=== PATIENT | male | born 1935 | race Caucasian/White ===

== ENCOUNTER 2022-04-08 14:44 | Outpatient (CLI) | payer MEDICARE, OTHER, SELFPAY ==
--- NOTE | 2022-04-08 14:48 | ECG_ITS ---
Measurements Intervals [place] Rate: 62 P: 58 [place]: 207 QRS: 45 QRSD: 95 T: 70 QT: 411 QTc: 418 Interpretive Statements SINUS RHYTHM INCOMPLETE RIGHT BUNDLE BRANCH BLOCK BASELINE ARTIFACT- V1-V4 BORDERLINE ECG NO PREVIOUS ECG AVAILABLE FOR COMPARISON Electronically Signed On 04-08-2022 15:13:39 STUDIO CAMERA OPERATOR by Myles Aguila D.O.
== END 2022-04-08 14:45 | disposition home or self-care (01) ==
PROVIDERS: Visit Provider Neurological Surgery
DX: Z01.818 Encounter for other preprocedural examination (principal); I45.10 Unspecified right bundle-branch block
CPT/HCPCS: 93005

== ENCOUNTER 2022-04-21 13:12 | Outpatient (CLI) | payer MEDICARE, OTHER, SELFPAY ==
[2022-04-21 13:57] LABS: Basophils Absolute Auto 0.1 K/mm3 (0.0-0.1); Basophils Percent Auto 0.9 % (0.2-1.2); Eosinophils Absolute Auto 0.3 K/mm3 (0-0.3); Eosinophils Percent Auto 3.6 % (0-4.4); Hematocrit 37.2 % (42.0-52.0); Hemoglobin 12.8 g/dL (14.0-18.0); Immature Granulocyte Absolute 0.03 K/mm3 (0.00-0.031); Immature Granulocyte Percent A 0.4 % (0-0.5); Lymphocytes Absolute Auto 1.66 K/mm3 (0.9-3.2); Lymphocytes Percent Auto 20.7 % (18.3-44.2); Mean Corpuscular HGB Conc 34.4 g/dl (32-36); Mean Corpuscular Hemoglobin 32.2 pg (26-34); Mean Corpuscular Volume 93.5 fl (80-100); Mean Platelet Volume 10.1 fl (7.4-10.4); Monocytes Absolute Auto 0.8 K/mm3 (0.1-0.6); Monocytes Percent Auto 9.4 % (2.6-8.5); Neutrophils Absolute Auto 5.2 K/mm3 (1.3-6.7); Platelet Count Result 259 k/mm3 (150-375); Red Blood Count 3.98 M/mm3 (4.6-6.20); Red Cell Distribution Width 12.2 % (11.5-14.5)
[2022-04-21 13:58] LABS: Appearance Urine Clear (Clear); Bilirubin Urine Negative (Negative); Blood Urine Trace-lysed (Negative); Color Urine Yellow (Yellow); Glucose Urine UA Negative (Negative); Ketones Urine Negative (Negative); Leukocyte Esterase Ur Negative LEU/UL (Negative); Nitrate Urine Negative (Negative); Protein Urine Negative (Negative); Urobilinogen Urine 0.2 mg/dL (<2.0)
[2022-04-21 14:15] LABS: Add Urine Microscopic? YES; Mucus Urine Rare /lpf
[2022-04-21 14:16] LABS: Anion Gap 8 mmol/L (8-16); Blood Urea Nitrogen 16 mg/dL (9-20); Calcium 9.4 mg/dL (8.4-10.2); Carbon Dioxide 27 mmol/L (22-30); Chloride 103 mmol/L (98-107); Estimated Glomerular Filt Rate > 60; Glucose 91 mg/dL (65-110); Sodium 138 mmol/L (137-145)
[2022-04-21 14:53] LABS: INR 1.1; Prothrombin Time 13.7 Seconds (11.1-14.7)
[2022-04-21 14:54] LABS: Partial Thromboplastin Time 29.8 SECONDS (22.3-36.8)
== END 2022-04-21 13:13 | disposition home or self-care (01) ==
LOC: ANHSURGERY 13:16
PROVIDERS: PCP Internal Medicine; Visit Provider Neurological Surgery
DX: M48.061 Spinal stenosis, lumbar region without neurogenic claudication (principal); M41.9 Scoliosis, unspecified; M47.816 Spondylosis without myelopathy or radiculopathy, lumbar region; Z01.818 Encounter for other preprocedural examination
CPT/HCPCS: 36415; 80048; 81001; 85025; 85610; 85730; 86850; 86900; 86901

== ENCOUNTER 2022-04-28 15:27 | Inpatient (IN) | payer MEDICARE, OTHER, SELFPAY ==
[2022-04-20 10:59] VITALS: BMI 24.2
--- NOTE | 2022-04-20 11:23 | PC.NURSE ---
Report to the Outpatient Waiting Room, entrance under the green pavilion located off [facility], at time __6:00AM on date __04/28/22 . Planned Procedure Time: ___7:30AM . Time changes happen often and if your time is changed the preop area will call you the afternoon before. - You and your visitor will be asked to self-screen and do not enter if you have any COVID symptoms. - Only one visitor is requested with a max of two and NO children visitors are allowed at this time. - The patient visitor may be requested to leave or wait in car when not with patient due to distancing restrictions. - A mask is optional within the hospital. Patients may have clear liquids (water, carbonated beverages, clear teas, apple juice) until 3 hours prior to surgery with a maximum of 20 ounces. - No food from midnight until time of surgery Take the following medications with a SIP of water the morning of surgery: ___NONE Medications to discontinue per physician __HOLD ASPIRIN & FISH OIL PER DR LOU (10 DAYS PER PATIENT- LAST DOSE 04/17/22). HOLD ALL VITAMINS/SUPPLEMENTS 3 DAYS PRE-OP- LAST DOSE 04/24/22. Please no make-up, nail lithuanian, hairspray, perfume, deodorant, or body powder the day of surgery. No jewelry (including any body piercings) or valuables the day of surgery, leave them at home. Please take a shower or bath the night before, or the morning of, surgery with an antibacterial soap. Wear comfortable, loose fitting clothing. Children are encouraged to wear pajamas. - Jewelry must be removed prior to entering the operating room. Rings and piercings that are not removed may be cut off. - The hospital will not accept responsibility for valuables. - Please leave all valuables, including medications, at home the day of surgery. If you are going home after surgery, a licensed miniature train driver must drive you home. - NO public transportation without another adult if you receive anesthesia. - We recommend that an adult stay with you for 24 hours following discharge. - We also recommend that you do not drive, make important decision, drink alcoholic beverages, or take any drugs that were not prescribed by your health care provider for at least 24 hours after your discharge time. Follow any additional instructions given to you from your surgeon. If you or anyone in your household have experienced Covid symptoms in the past week, please notify your surgeon or the nurse liaison at the phone number below for possible testing. Telephone instructions given to __PATIENT and asked if any additional questions and then verbalized understanding. Patient advised to call surgeon office or pre surgery nurse liaison [phone] if any additional questions. Report to the Outpatient Waiting Room, entrance under the green pavilion located off [facility], at time on date . Planned Procedure Time: . Time changes happen often and if your time is changed the preop area will call you the afternoon before. - You and your visitor will be asked to self-screen and do not enter if you have any COVID symptoms. - Only one visitor is requested with a max of two and NO children visitors are allowed at this time. - The patient visitor may be requested to leave or wait in car when not with patient due to distancing restrictions. - A mask is optional within the hospital. Patients may have clear liquids (water, carbonated beverages, clear teas, apple juice) until 3 hours prior to surgery with a maximum of 20 ounces. - No food from midnight until time of surgery - Infants may have breast milk until 4 hours before surgery, formula 6 hours prior to surgery. - Children will be allowed to drink immediately following surgery. If applicable, please bring a bottle or sippy cup to assist with drinking. Juice, water, soda, and popsicles are readily available. For infants on formula, please bring form
[2022-04-28] VITALS (18 sets, daily range): BP systolic 106–163; BP diastolic 51–83; PULSE 47–69; RESP 12–20; TEMP 36.1–36.6; O2SAT 95–100
--- NOTE | ~2022-04-28 | XR_ITS ---
XR fluoroscopy no charge 04/28/2022 12:14 Lumbar fusion/laminectomy TECHNIQUE: Fluoroscopy used during lumbar fusion/laminectomy performed by [Enmanuel Hein MD ] on 04/28/2022. 2 seconds of fluoroscopy time with 1 images captured. ] FINDINGS: Correlate with procedure note. IMPRESSION: Fluoroscopy used during lumbar fusion/laminectomy. Reviewed, dictated and finalized at location A. [employer]
[2022-04-28] MEDS: LACTATED RINGERS 1,000 ML 125 ML IV CONT (07:02)
--- NOTE | 2022-04-28 07:19 | P.PNAN_ITS ---
Anes - Initial Pre Proc Eval Procedure: Operation Date: 04/28/22 07:30 Proposed Procedures p L3-4, L4-5 Posterior Lumbar Interbody Fusion, L2-3 Right Fawad Laminectomy - Enmanuel Heni MD s L2-3 Right Lumbar Fawad Laminectomy - Enmanuel Hein MD Date/Time: 04/28/22 07:19 Surgeon: Enmanuel Hein MD Pre Op Diagnosis: lumbar stenosis, synovial cyst, disc herniation Patient Data Age: 86 Gender: M Height: 1.68 m Weight: 70.1 kg Last Vital Signs Temp 36.3 C L 04/28/22 07:05 Pulse 66 04/28/22 07:05 Resp 16 04/28/22 07:05 BP 163/83 H 04/28/22 07:05 Pulse Ox 98 04/28/22 07:05 O2 Del Method Room Air 04/28/22 07:05 Allergies Allergy/AdvReac Type Severity Reaction Status Date / Time No Known Allergies Allergy Verified 04/28/22 06:37 Home Medications Medication Instructions Recorded Confirmed Type aspirin 81 mg tablet,delayed 81 mg PO EVERY OTHER DAY 12/08/21 04/28/22 History release ibuprofen 200 mg tablet 400 mg PO Q6H PRN Pain 12/08/21 04/28/22 History omega 2-tqi-gbl-fish oil 60 mg-90 1 cap PO DAILY 12/08/21 04/28/22 History mg-500 mg capsule (Fish Oil) apcyayzoklsi-suzywphl-jneyoe tablet 1 tablet PO DAILY 04/20/22 04/28/22 History tamsulosin 0.4 mg capsule 0.4 mg PO HS 04/20/22 04/28/22 History azithromycin 500 mg tablet 250 mg PO DAILY 04/28/22 04/28/22 History Patient hx anesthesia problems: none Family hx anesthesia problems: none Results Review: All pre-operative results and documents have been reviewed as part of the pre- operative evaluation. [facility] Past Medical History Medical History DDD (degenerative disc disease) Insomnia Lumbar facet arthropathy Lumbar post-laminectomy syndrome Lumbar radiculopathy, chronic Surgical History Surgical History H/O Spinal surgery Family History Family History Other Heart disease Social History Social History Smoking status: Never smoker Alcohol intake: current Drinks per week: 1 Substance use: never Substance use type: does not use Living arrangements: with family Additional living arrangements comments: Spiritual care concerns: No Anes - Eval Final PreProcedure Day of Procedure 04/28/22 07:19 Patient weight: normal Heart: regular rate and rhythm Lungs: clear to auscultation Airway: Mallampati scale class II Neurological: alert and oriented Last oral intake: >/= 8 hours ASA classification: II Emergent: no Anesthetic plan: proceed Anesthesia type and monitoring: general ETT and standard monitoring Results Review: All pre-operative results and documents have been reviewed as part of the pre- operative evaluation. Informed Consent: The patient's anesthetic plan and its attendant risks and benefits were discussed with the patient/family/POA. Questions were solicited and answers provided to the satisfaction of the patient/family/POA.
--- NOTE | 2022-04-28 07:40 | PM.IMHP ---
H&P: HPI History of Present Illness Date/Time: 04/28/22 07:40 Chief Complaint: Back and leg pain Narrative: Jones is a 86-year-old gentleman with back and leg pain related to pathology at L3-4 L4-5 and at L2-3 who presents for fusion from L3-L5 and hemilaminectomy at L2-3. He has not changed appreciably since we last saw him. He is not having bowel or bladder difficulty. He does not have any specific muscle group weakness or dermatomal numbness. Review of Systems Review of Systems: Patient denies shortness of breath, cough, fever, chills, nausea, vomiting, weight loss, weight gain, chest pain, dysuria. He has back and leg pain and stiffness as above. His review of systems is otherwise negative on 12 systems except as noted elsewhere. [facility] Past Medical History Medical History DDD (degenerative disc disease) Insomnia Lumbar facet arthropathy Lumbar post-laminectomy syndrome Lumbar radiculopathy, chronic Surgical History Surgical History H/O Spinal surgery Family History Family History Other Heart disease Social History Social History Smoking status: Never smoker Alcohol intake: current Drinks per week: 1 Substance use: never Substance use type: does not use Living arrangements: with family Additional living arrangements comments: Spiritual care concerns: No Meds Home Medications and Allergies Home Medications Medication Instructions Recorded Confirmed Type aspirin 81 mg tablet,delayed 81 mg PO EVERY OTHER DAY 12/08/21 04/28/22 History release ibuprofen 200 mg tablet 400 mg PO Q6H PRN Pain 12/08/21 04/28/22 History omega 7-mqp-kpu-fish oil 60 mg-90 1 cap PO DAILY 12/08/21 04/28/22 History mg-500 mg capsule (Fish Oil) doiadsfvyxol-ppdrvrtk-apoahr tablet 1 tablet PO DAILY 04/20/22 04/28/22 History tamsulosin 0.4 mg capsule 0.4 mg PO HS 04/20/22 04/28/22 History azithromycin 500 mg tablet 250 mg PO DAILY 04/28/22 04/28/22 History Allergies Allergy/AdvReac Type Severity Reaction Status Date / Time No Known Allergies Allergy Verified 04/28/22 06:37 Vital Signs Vital Signs - 24 hr 04/28/22 07:05 Temperature 97.3 F L Pulse Rate 66 Respiratory Rate 16 Blood Pressure 163/83 H Pulse Oximetry 98 Oxygen Delivery Room Air Exam Narrative: Strength is normal the bilateral lower extremities to direct confrontation. Sensation is intact to light touch throughout the lower extremities. Respirations are unlabored Regular rate Assessment and Plan Assessment and plan (1) Foraminal stenosis of lumbar region: Code(s): M48.061 - Spinal stenosis, lumbar region without neurogenic claudication Status: Acute (2) Scoliosis of lumbar spine: Code(s): M41.9 - Scoliosis, unspecified Status: Acute (3) Stenosis of lateral recess of lumbar spine: Code(s): M48.061 - Spinal stenosis, lumbar region without neurogenic claudication Status: Acute (4) Lumbar spondylosis: Code(s): M47.816 - Spondylosis without myelopathy or radiculopathy, lumbar region Status: Acute Plan Jones is an 86-year-old gentleman with back and leg pain related to the above pathology presents for decompression fusion L3 and hemilaminectomy at L2-3. I described to him again that operation, its risks, potential benefits, the operative and postoperative course in detail and answered all his questions personally. He indicates understanding and elects to proceed with that operation.
--- NOTE | 2022-04-28 07:42 | WPDHPUPDATE1 ---
History and Physical Update Update Date/Time: 04/28/22 07:42 History and Physical has been reviewed, including an updated exam of the patient. There are NO changes in the patient's condition. Risks, benefits, and alternatives have been discussed and questions answered. Patient agrees to proceed with procedure.
[2022-04-28] MEDS: ceFAZolin 2 GM/D5W 50 ML 2 GM/50 ML BAG IVPB (07:46)
[2022-04-28] MEDS: LIDO 1%/EPINEPHRINE/PF 1:200,000 30 ML VIAL 10 ML XX (08:40)
[2022-04-28] MEDS: ceFAZolin SODIUM 1 GM VIAL IV PUSH (11:46)
--- NOTE | 2022-04-28 12:01 | SUR.OPER ---
550mL of clear yellow urine drained from bravo
[2022-04-28] MEDS: LACTATED RINGERS 1,000 ML 30 ML IV CONT ×2 (12:17)
[2022-04-28] MEDS: fentaNYL CITRATE INJ (*CRX) 100 MCG/2 ML VIAL 25 MCG IV PUSH ×8 (12:34→13:15)
[2022-04-28] MEDS: HYDROmorphone HCL INJ (*CRX) 1 MG/ML SYR 0.5 MG IV PUSH ×3 (13:52→14:55)
--- NOTE | 2022-04-28 14:05 | SUR.PHASEI ---
1400 - Dr. Hein at bedside assessing pt
--- NOTE | 2022-04-28 14:17 | SUR.PHASEI ---
1417 - pt meets anesthesia criteria. no beds available at this time. pt to preop for extended recovery
--- NOTE | 2022-04-28 16:12 | ADMGEN ---
This patient, Jones Del Castillo, was admitted to Medical Room 251-. Patient/family oriented to hospital policies and general routines including ID bracelet, bed and alarms, visiting hours, pain management, procedures, bathroom and other care routines, personal items, smoking policy, room service/diet, and visiting hours. Information on how to activate the Rapid Response Team has been discussed. Patient/Family are encouraged to report perceived risks to care and to ask questions if they do not understand what they are told or what they should do.
[2022-04-28] MEDS: AZITHROMYCIN 250 MG TABLET PO (16:43)
[2022-04-28] MEDS: KCL 20 MEQ/D5/0.45% SOD CHL 1,000 ML 100 ML IV CONT (17:26)
[2022-04-28] MEDS: DOCUSATE SODIUM 100 MG CAPSULE PO (21:10)
[2022-04-28] MEDS: TAMSULOSIN HCL 0.4 MG CAPSULE PO (21:10)
[2022-04-28] MEDS: HYDROcodone/acetaminophen (*CRX) 10-325 MG TABLET 1 TAB PO (21:13)
[2022-04-29] VITALS (8 sets, daily range): BP systolic 88–141; BP diastolic 49–69; PULSE 58–77; RESP 16–18; TEMP 36.1–36.8; O2SAT 95–99
[2022-04-29] MEDS: HYDROcodone/acetaminophen (*CRX) 10-325 MG TABLET 1 TAB PO (03:00)
[2022-04-29] MEDS: AZITHROMYCIN 250 MG TABLET PO (08:19)
[2022-04-29] MEDS: OMEGA 3 POLYUNSAT FATTY ACIDS 1 GM CAP PO (08:19)
[2022-04-29] MEDS: OPTI-GEN TAB 1 TABLET PO (08:19)
[2022-04-29] MEDS: DOCUSATE SODIUM 100 MG CAPSULE PO ×2 (08:19→21:08)
[2022-04-29] MEDS: KCL 20 MEQ/D5/0.45% SOD CHL 1,000 ML 30 ML IV CONT (08:20)
[2022-04-29] MEDS: HYDROcodone/acetaminophen (*CRX) 5-325 MG TABLET 1 TAB PO ×2 (08:28→23:37)
--- NOTE | 2022-04-29 12:01 | WPDANESPN ---
Anes - Prog Note Post-Op Date/Time: 04/29/22 12:01 Cardiovascular status: normal Respiratory status: normal Airway patency: baseline Mental status: baseline Post-Op hydration status: normal Vital Signs: Last Vital Signs Temp 36.5 C 04/29/22 09:35 Pulse 67 04/29/22 09:35 Resp 16 04/29/22 09:35 BP 100/52 L 04/29/22 09:35 Pulse Ox 98 04/29/22 09:35 O2 Del Method Room Air 04/29/22 09:55 O2 Flow Rate 2 04/28/22 15:06 Pain Score (VAS): 310 I/O: Intake & Output 04/28/22 04/29/22 04/29/22 23:59 07:59 15:59 Intake Total 946 532 6082 Output Total 140 1700 Balance 30 -750 1000 Post-procedural complaints: none Patient Feedback: Patient satisfied with anesthetic care.
--- NOTE | 2022-04-29 13:55 | WPDNEUROPN ---
Progress Note: A&P Assessment and Plan (1) Foraminal stenosis of lumbar region: Code(s): M48.061 - Spinal stenosis, lumbar region without neurogenic claudication Status: Acute Plan Patient doing well and pain is controlled. He reported that his was diagnosed with COVID today. Case discussed with Dr Hein. Time Spent With Patient Time with patient: less than 15 minutes Subjective Date/time seen: 04/29/22 13:55 Interval history: 86 year old male who is s/p Hemilaminectomy L2-3 with posterior fusion L3-5, post op day 1. Preoperative pain controlled, however remains with incisional pain-controlled with oral medications. Ambulated in the hallway, bravo catheter removed today and Hemovac drain remains in place. No complaints of leg symptoms. Exam Narrative: AO x 3 Speech clear fluent and appropriate Lumbar dressing is clean ddry and intact. Strength is equal to the bilateral lower extremities to direct confrontation, 5/5. Sensation is intact to light touch throughout the lower extremities. Objective Data Vital Signs Vital Signs: Vital Signs - 24 hr 04/28/22 14:00 04/28/22 14:14 04/28/22 14:30 Temperature 36.1 C L Pulse Rate 58 L 58 L 62 Respiratory Rate 13 20 16 Blood Pressure 139/62 128/72 154/59 H Pulse Oximetry 100 100 97 Oxygen Delivery Nasal Cannula Nasal Cannula Nasal Cannula Oxygen Flow Rate 2 2 2 04/28/22 15:06 04/28/22 16:00 04/28/22 16:15 Temperature 36.5 C 36.5 C Pulse Rate 69 69 68 Respiratory Rate 16 16 16 Blood Pressure 148/62 H 145/57 H 130/58 L Pulse Oximetry 98 97 95 Oxygen Delivery Nasal Cannula Oxygen Flow Rate 2 04/28/22 16:40 04/28/22 17:45 04/28/22 19:49 Temperature 36.4 C 36.4 C 36.6 C Pulse Rate 60 65 67 Respiratory Rate 16 16 17 Blood Pressure 134/51 L 130/55 L 126/57 L Pulse Oximetry 95 97 98 Oxygen Delivery Oxygen Flow Rate 04/28/22 22:27 04/29/22 02:27 04/29/22 04:53 Temperature 36.6 C 36.3 C L 36.7 C Pulse Rate 59 L 58 L 60 Respiratory Rate 18 17 17 Blood Pressure 106/57 L 104/49 L 102/53 L Pulse Oximetry 95 95 96 Oxygen Delivery Oxygen Flow Rate 04/29/22 08:27 04/29/22 09:35 04/29/22 09:55 Temperature 36.5 C Pulse Rate 67 Respiratory Rate 16 Blood Pressure 116/54 L 100/52 L Pulse Oximetry 98 Oxygen Delivery Room Air Oxygen Flow Rate 04/29/22 08:15 04/29/22 09:30 Temperature Pulse Rate Respiratory Rate Blood Pressure 88/54 L Pulse Oximetry Oxygen Delivery Room Air Oxygen Flow Rate Intake/Output Intake/Output: Intake & Output 04/26/22 04/27/22 04/28/22 04/29/22 23:59 23:59 23:59 23:59 Intake Total 470 2190 Output Total 540 1800 Balance -70 390 Meds/Results Medications: Active Medications Generic Name Dose Route Start Last Admin Trade Name Freq PRN Reason Stop Dose Admin Hydrocodone Bitart/Acetaminophen 1 tab 04/28/22 14:18 04/29/22 03:00 Hydrocodone/Acetaminophen (*Crx) 10-325 Mg Tablet PO 1 tab Q4H PRN Administration Moderate Pain (4-6) Hydrocodone Bitart/Acetaminophen 1 tab 04/28/22 15:27 04/29/22 08:28 Hydrocodone/Acetaminophen (*Crx) 5-325 Mg Tablet PO 1 tab Q4H PRN Administration Mild Pain (1-3) Al Hydrox/Mg Hydrox/Simethicone 20 ml 04/28/22 15:27 Mag Hydrox/Al Hydrox/Simeth 30 Ml Udc PO Q4H PRN Indigestion/Heartburn Azithromycin 250 mg 04/28/22 15:35 04/29/22 08:19 Azithromycin 250 Mg Tablet PO 250 mg DAILY SANGITA Administration Bisacodyl 10 mg 04/28/22 15:27 Bisacodyl 10 Mg Suppository RECTAL DAILY PRN Constipation Cyclobenzaprine HCl 10 mg 04/28/22 15:27 Cyclobenzaprine Hcl 10 Mg Tablet PO TID PRN Muscle Spasms Docusate Sodium 100 mg 04/28/22 21:00 04/29/22 08:19 Docusate Sodium 100 Mg Capsule PO 100 mg Q12HR SANGITA Administration Fish Oil 1 gm 04/29/22 09:00 04/29/22 08:19 Union 3 Polyunsat Fatty Acids 1 Gm Cap PO 05/29/22 08:59
[2022-04-29] MEDS: TAMSULOSIN HCL 0.4 MG CAPSULE PO (21:08)
[2022-04-30 03:35] VITALS: BP 131/61; PULSE 97; RESP 18; TEMP 36.2; O2SAT 95
[2022-04-30 07:11] VITALS: BP 119/55; PULSE 90; RESP 18; TEMP 36.2; O2SAT 96
[2022-04-30] MEDS: HYDROcodone/acetaminophen (*CRX) 10-325 MG TABLET 1 TAB PO ×4 (08:02→23:16)
[2022-04-30] MEDS: OMEGA 3 POLYUNSAT FATTY ACIDS 1 GM CAP PO (08:03)
[2022-04-30] MEDS: OPTI-GEN TAB 1 TABLET PO (08:03)
[2022-04-30] MEDS: DOCUSATE SODIUM 100 MG CAPSULE PO ×2 (08:04→20:15)
[2022-04-30] MEDS: AZITHROMYCIN 250 MG TABLET PO (08:04)
[2022-04-30 13:15] VITALS: BP 117/58; PULSE 87; RESP 18; TEMP 36.7; O2SAT 97
[2022-04-30 16:51] VITALS: BP 124/58; PULSE 83; RESP 18; TEMP 36.7; O2SAT 97
[2022-04-30 20:00] VITALS: PULSE 83; RESP 18; O2SAT 97
[2022-04-30] MEDS: TAMSULOSIN HCL 0.4 MG CAPSULE PO (20:15)
[2022-04-30 21:34] VITALS: BP 118/62; PULSE 77; RESP 20; TEMP 36.2; O2SAT 99
[2022-04-30] MEDS: KCL 20 MEQ/D5/0.45% SOD CHL 1,000 ML 30 ML IV CONT (23:16)
[2022-05-01 02:00] VITALS: BP 112/60; PULSE 83; RESP 18; TEMP 36.1; O2SAT 96
[2022-05-01] MEDS: HYDROcodone/acetaminophen (*CRX) 10-325 MG TABLET 1 TAB PO ×3 (04:16→16:17)
[2022-05-01 06:00] VITALS: BP 116/61; PULSE 84; RESP 18; TEMP 36.1; O2SAT 96
[2022-05-01] MEDS: DOCUSATE SODIUM 100 MG CAPSULE PO (08:15)
[2022-05-01] MEDS: AZITHROMYCIN 250 MG TABLET PO (08:15)
[2022-05-01] MEDS: OMEGA 3 POLYUNSAT FATTY ACIDS 1 GM CAP PO (08:15)
[2022-05-01] MEDS: OPTI-GEN TAB 1 TABLET PO (08:15)
[2022-05-01 10:00] VITALS: BP 133/60; PULSE 88; RESP 18; TEMP 37.1; O2SAT 98
[2022-05-01 14:39] VITALS: BP 118/58; PULSE 86; RESP 18; TEMP 36.4; O2SAT 97
--- NOTE | 2022-05-19 13:54 | W.PM.PROC2 ---
Procedure Note - Detailed Date of Procedure 05/19/22 Pre-op Diagnosis lumbar stenosis, synovial cyst, disc herniation Post-op Diagnosis Same Procedure Performed L3-4 and L4-5 laminectomy and bilateral facetectomy, L3-4 and L4-5 complete diskectomy and interbody arthrodesis utilizing Orthofix titanium interbody devices and local autograft bone, L3-5 pedicle screw instrumentation with Orthofix pedicle screws, right L2-3 hemilaminectomy. Surgeon Enmanuel Hein MD Anesthesia General Indications Jones is an 86-year-old gentleman with back and leg pain related to spondylosis, stenosis and foraminal stenosis at L3-5 and lateral recess stenosis at L2-3 presents for decompression and fusion at L3-5 and a hemilaminectomy on the right at L2-3. There is also a synovial cyst present. Description of Procedure The patient was brought to the operative room in the supine position, was sedated, intubated and placed under general anesthesia in routine fashion. He was then turned into the prone position on an open [place] table. He of operations fact examined, marked our incision, prepped and draped in routine sterile fashion. Incision was marked over the L2 through 0 5 spinous processes in the midline. This area was injected with 0.5% lidocaine with 1-200 epinephrine. Intravenous antibiotics prior to incision. Incision was made with a 10 blade scalpel down to the lumbodorsal fascia. A subperiosteal dissection of the muscle and soft tissue away from the spinous process and lamina at L2 through 5 was performed with a subperiosteal elevator and Bovie cautery. A verifying x-rays obtained to verify level of operation. The L3 and L4 spinous processes were removed with a Thad rongeur. Kerrison punches, curettes curettes and a Leksell rongeur used to remove lamina in the midline and to the soft contents of the canal were encountered. a Midas Mk drill was used to resect the pars bilaterally at L3-L4. The inferior articular process and facet of L3 and L4 could then be removed bilaterally. These, plus the spinous processes were stripped free of soft tissue and morselized for later use as interbody autograft. Curved curettes and Kerrison punches were used to define a plane with the dura and removed bone and ligament flushed with the pedicle and through the foramina widely decompressing the exiting nerve roots. At L2-3 on the right the Midas-Mk drill was used to perform a hemilaminectomy and medial facetectomy. The yellow ligament was lifted and removed piecemeal using Kerrison punches in the lateral recess. This was done until a dental instrument could be placed in the lateral recess to confirm lack of compression. Pedicle was felt and the L2 and L3 nerve roots identified and followed towards the respective foramina. With the thecal sac retracted and protected the disc space was entered bilaterally using an 11 blade scalpel. Scrapers of various sizes, curettes of various configurations, a pituitary rongeur and a rasp were used to remove as much cartilaginous endplate and disc material as possible down to bleeding cortical flat surfaces on the opposing bones. The disc spaces were then sized an appropriately sized interbody devices were chosen and filled with local autograft bone. The disc spaces were likewise filled with local autograft bone medially and anteriorly using the tamp and fundal for that purpose. The interbody devices were then placed to a 2-3 mm countersink within the disc space bilaterally. The transverse processes at L3-5 or uncovered using Bovie cautery and decorticate it using a Midas Mk drill. Additional local autograft bone was packed continuously from L3-5 over the decorticated transverse processes and lateral masses for a posterolateral fusion. Pedicle screw instrumentation was performed at L3-L4 L5 bilaterally by observing and palpating the pedicle while a hole was made in the superior to the process above the pedicle using a Midas
--- NOTE | 2022-05-19 14:42 | PM.DS ---
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 DS: Summary Hospital Course Hospital Course: Jones was taken to the operating room on 04/28/2022 with the aforementioned operation was performed without complication. Patient went to the floor postoperatively. Physical and occupational therapy were involved in his care. By postoperative day 2 his Chahal catheter and drain were removed. By postoperative day 3 he was eating, ambulating, emptying his bladder, and his pain was under control with by mouth pain medicine. His wounds remain clean, dry and intact. He was afebrile with stable vital signs. He was therefore allowed to be discharged to home. Time Spent with Patient Time attestation: Total time spent providing and/or coordinating discharge services: Discharge Plan Discharge Attending physician on discharge: Enmanuel Hein Consulting providers: Melchor Mcneill ; Walker Darling Discharging Clinician: Enmanuel Hein Anticipated Discharge Date/Time: 05/01/22 18:20 Patient Disposition: Home, Self-Care Activity: may shower Diet: as tolerated Wound Care Instructions: other - see discharge instructions Discharge Instructions: INSTRUCTIONS AFTER YOUR LUMBAR LAMINECTOMY/DECOMPRESSION/FORAMINOTOMY/DISCECTOMY Incisions may be closed with either: Steri-strips (let them wear off on their own). Surgical glue (let it peel off on its own). Sutures or garett (call the office for an appointment to have these removed). Keep the incision dry for the first three days after surgery. Never apply ointments or lotions to the incision. The incision should be checked daily. Notify the office if there is drainage, redness, or if you have fever with a temperature of over 100 degrees. After the third postop day, it is okay to shower. Let soap and water run over your incision. No soaking in a tub, hot tub, or pool for at least one month. You are encouraged to walk as much as comfortable, with assistance as needed. For example, it may be beneficial to walk short distances hourly during the waking hours and gradually increase walking during your recovery period. Fatigue can be common. Avoid any bending, heavy lifting, twisting movements. You have an haxhr-dj-mbk-pound lift restriction until further advised by your physician (A gallon of milk weighs eight pounds). Make frequent position changes, avoiding long periods of sitting. Try not to sit more than 30 minutes at a time. You may engage in sexual activity in two weeks as tolerated. No housework, especially vacuuming, making beds, or doing laundry until seen in the office. You may walk stairs carefully. Minimize car rides for two weeks. Driving can usually be resumed within two weeks; however, you may not drive at that time if still taking pain medications. Once you are discharged from the hospital, please call the office to set up your postop appointment. The physician may order pain medication and/or muscle relaxers. As time goes by, you should require less of these. Always take your medication as ordered, and only if needed. If you take more than prescribed, it will not be refilled early. If you feel you require narcotic medication refill, kindly give the office a 72-hour notice. No refills are given over the weekend. Anti-inflammatory meds (like Ibuprofen, Aleve, Advil, Motrin) may be used if approved by your surgeon. Over the counter Tylenol products may be used but use caution mixing Tylenol with your pain medication. The common pain pills include Acetaminophen as an ingredient, you could cause liver damage if taking too much. Tylenol and Acetaminophen are
== END 2022-05-01 18:51 | disposition home or self-care (01) | DRG 460 ==
LOC: ANH2MED 15:30
PROVIDERS: Admitting Provider Neurological Surgery; PCP Internal Medicine; Visit Provider Neurological Surgery
PROC: (CPT 22612; principal; 2022-04-28 07:30)
DX: M48.061 Spinal stenosis, lumbar region without neurogenic claudication (principal); M41.9 Scoliosis, unspecified; M47.26 Other spondylosis with radiculopathy, lumbar region; Z79.82 Long term (current) use of aspirin
CPT/HCPCS: 97116; 97161; 97165; 97530; 97535; 99199; A9270; C1713; J0690; J1100; J1170; J2370; J2405; J2704; J2710; J3010; J3480; J7120

== ENCOUNTER 2022-06-15 08:02 | Outpatient (CLI) | payer MEDICARE, OTHER, SELFPAY ==
--- NOTE | ~2022-06-15 | XR_ITS ---
Lumbosacral Spine: AP and lateral views Clinical History: Postoperative COMPARISON: 03/11/2011 Findings: There is posterior fusion hardware extending from L3 through L5, bilateral rods and transpe dicular screws present. Interbody disc fusion devices are present at the L3-L4, L4-L5, and L5-S1 disc spaces. There is severe degenerative disc narrowing at L2-L3, with mild degenerative disc narrowing at L1-L2. Probable laminectomy defects present at L4 and L5. Bilateral hip arthroplasties are incidentally noted minimal degenerative change of the SI joints note d. Impression: Postoperative change related to posterior fusion from L3 through L5, as detailed above. Severe degenerative disc narrowing at L2-L3. Reviewed, dictated and finalized at location M. [facility] Impression: Postoperative change related to posterior fusion from L3 through L5, as detaile d above. Severe degenerative disc narrowing at L2-L3.
== END 2022-06-15 08:03 | disposition home or self-care (01) ==
PROVIDERS: PCP Internal Medicine; Visit Provider Neurological Surgery
DX: Z98.890 Other specified postprocedural states (principal)
CPT/HCPCS: 72100

== ENCOUNTER 2022-07-10 09:19 | Outpatient (CLI) | payer MEDICARE, SELFPAY ==
[2022-07-10 09:39] LABS: Add Urine Microscopic? YES; Bilirubin Urine Negative (Negative); Blood Urine Trace-Intact (Negative); Color Urine Light Yellow (Yellow); Glucose Urine UA Negative (Negative); Ketones Urine Negative (Negative); Leukocyte Esterase Ur 3+ (Negative); Nitrate Urine Positive (Negative); Protein Urine 2+ (Negative); Specific Grav Ur <= 1.005 (1.010-1.020); Urobilinogen Urine 0.2 mg/dL (0.2-1.0); pH Urine >=9.0 (5.0-8.0)
[2022-07-10 09:44] LABS: Appearance Urine Cloudy (Clear)
[2022-07-10 09:45] LABS: Bacteria Urine 4+ /hpf; Squamous Epithelial Cell Urine Rare /hpf (Few)
== END 2022-07-10 09:20 | disposition home or self-care (01) ==
LOC: CHSLAB 09:22
PROVIDERS: PCP Internal Medicine; Visit Provider Internal Medicine
DX: N39.0 Urinary tract infection, site not specified (principal)
CPT/HCPCS: 81001; 87077; 87086; 87088; 87186

== ENCOUNTER 2022-08-25 11:32 | Emergency (ER) | payer MEDICARE, OTHER, SELFPAY ==
[2022-08-25] VITALS (27 sets, daily range): BP systolic 143–177; BP diastolic 72–99; PULSE 62–103; RESP 12–24; TEMP 36.4–36.8; O2SAT 95–99
--- NOTE | ~2022-08-25 | CT_ITS ---
EXAMINATION: CTA chest PE protocol DATE: 08/25/2022 12:40 INDICATION: Shortness of breath. Midsternal chest pain. TECHNIQUE: Computed tomography angiography (CTA) of the chest was performed with 100 mL Omnipaque-350 intravenous contrast timed to evaluate the pulmonary arteries. Coronal maximum intensity projection 3D-reconstructions were created by the technologist. Automated exposure control and iterative reconst ruction technique were employed. The dose-length product was 345.83 mGy-cm. COMPARISON: Chest CT 06/05/2015 FINDINGS: There is mild scarring at the lung apices. There is smooth septal thickening in the lungs w ith an inferior predominance, consistent mild pulmonary edema. Calcified left lung nodules and a calc ified mediastinal lymph node are consistent with old granulomatous disease. No pleural effusion. The heart size is normal. There are coronary artery calcifications. No pericardial effusion. There is no pulmonary embolus. There is severe cervical and upper thoracic spondylosis. IMPRESSION: 1. No pulmonary embolus. 2. Mild pulmonary edema. Reviewed, dictated and finalized at location A.
--- NOTE | ~2022-08-25 | XR_ITS ---
EXAMINATION: XR chest 2V DATE: 08/25/2022 11:56 INDICATION: Midsternal chest pain TECHNIQUE: PA and lateral views of the chest are obtained. COMPARISON: 11/10/2018 FINDINGS: The lungs are free of acute opacities. No pleural effusion or pneumothorax. The cardiomedia stinal silhouette is normal. There is moderate thoracic spondylosis. IMPRESSION: 1. No acute cardiopulmonary abnormality. Reviewed, dictated and finalized at location L.
--- NOTE | 2022-08-25 11:34 | ECG_ITS ---
Measurements Intervals [place] Rate: 74 P: IA: 0 QRS: 31 QRSD: 92 T: -17 QT: 373 QTc: 416 Interpretive Statements SINUS RHYTHM WITH ABERRANT CONDUCTION OR VENTRICULAR PREMATURE COMPLEXES AND PREMATURE ATRIAL CONTRACTION NONSPECIFIC ST AND T-WAVE ABNORMALITY ABNORMAL ECG Electronically Signed On 08-26-2022 13:57:40 CDT by Jack Becerra M.D.
--- NOTE | 2022-08-25 11:35 | ED.CHESTPAIN ---
HPI - Chest Pain General Chief Complaint: Chest Pain Stated Complaint: chest pain Time Seen by Provider: 08/25/22 11:33 Source: patient and RN notes reviewed Mode of arrival: wheelchair Limitations: no limitations History of Present Illness HPI narrative: patient states that for the last 2 days when he was using a pitchfork to throw hay up over wall for his horses he began having chest pain. Said it was dull achy substernal with some associated shortness of breath. He denied any nausea vomiting denied any diaphoresis. He said it went away after he rested. He has never had any cardiac history. He has no associated risk factors. Never been a smoker. He went to see his primary care physician in follow-up this morning. An EKG at his office showed some ST elevations in 2 3 and AVF. Repeat EKG within 30 minutes of the last 1 here our facility does not show that ST-elevation MD complaint: chest pain Onset (ago): day(s) (3) Timing of current episode: episodic and now resolved Onset: during exertion Pain location: substernal Pain radiation: none Severity: moderate Quality: aching and dull Relieving factors: rest Exacerbating factors: exertion Associated symptoms: dyspnea (mild) Treatment prior to arrival: none Risk Factors Coronary artery disease risk factors: none Thoracic aortic dissection risk factors: none Related Data Home Medications Medication Instructions Recorded Confirmed aspirin 81 mg tablet,delayed 81 mg PO EVERY OTHER DAY 12/08/21 08/25/22 release omega 6-bno-wrn-fish oil 60 mg-90 1 cap PO DAILY 12/08/21 08/25/22 mg-500 mg capsule (Fish Oil) tamsulosin 0.4 mg capsule 0.4 mg PO HS 04/20/22 08/25/22 krill oil 500 mg capsule 500 mg PO HS 08/25/22 08/25/22 vvgwdepylogc-qlkmhdxi-fssnut tablet 1 tablet PO DAILY 08/25/22 08/25/22 Allergies Allergy/AdvReac Type Severity Reaction Status Date / Time No Known Allergies Allergy Verified 08/25/22 11:43 Review of Systems Review of Systems: All systems reviewed & are unremarkable except as noted in HPI and below Gastrointestinal: Gastrointestinal: Denies diarrhea and Denies nausea PMFSH Past Medical History Medical History (Updated 08/25/22 @ 12:23 by Tyler Alvarez MD) BPH (benign prostatic hyperplasia) DDD (degenerative disc disease) Insomnia Lumbar facet arthropathy Lumbar post-laminectomy syndrome Lumbar radiculopathy, chronic Surgical History Surgical History H/O Spinal surgery Family History Family History (Updated 08/25/22 @ 16:14 by Sania Alexis RN) Father Pneumonia Mother Heart disease Social History Social History Smoking status: Never smoker Alcohol intake: never Drinks per week: 1 Substance use: never Substance use type: does not use Lack of Transportation: No Lack of Food: Never True Current Housing: I Have Housing Concerned About Future Housing: No Difficulty Paying Gas/Electric Bills: No Difficulty Paying for Meds: No Currently Unemployed: No Education: High School Diploma/GED Difficulty w/ Childcare or Family Care: No Living arrangements: with family Additional living arrangements comments: Spiritual care concerns: No Exam Const: General: healthy appearing, no acute distress and alert Nutritional Appearance: well nourished and thin Orientation/consciousness: patient oriented x3 Limitations: no limitations HENMT: Head: normal to inspection Ears: external ears normal Face/Nose/Sinus: Normal external nose present Face and sinus: normal facial exam Mouth: Yes Normal oral and palatal mucosa present Eyes: Conjunctivae: conjunctivae normal Pupils: Equal, round and reactive pupils present EOM: EOMs intact bilaterally Neck: Neck: normal visual inspection Resp: Effort & Inspection: normal respiratory effort Auscultation: clear to auscultation bilaterally Cardio: R
[2022-08-25 11:49] LABS: Basophils Absolute Auto 0.06 K/mm3 (0.00-0.10); Basophils Percent Auto 0.9 % (0.0-1.0); Eosinophils Absolute Auto 0.11 K/mm3 (0.02-0.50); Eosinophils Percent Auto 1.6 % (1.0-6.0); Hematocrit 37.7 % (37.0-46.0); Immature Granulocyte Absolute 0.02 K/mm3 (0.00-0.00); Immature Granulocyte Percent A 0.3 % (0.0-0.0); Lymphocytes Absolute Auto 1.45 K/mm3 (1.10-4.50); Lymphocytes Percent Auto 21.1 % (18.0-42.0); Mean Corpuscular HGB Conc 34.5 g/dL (32.0-36.0); Mean Corpuscular Hemoglobin 32.4 pg (27.0-31.0); Mean Platelet Volume 10.1 fl (8.7-11.0); Monocytes Percent Auto 10.2 % (2.0-11.0); Neutrophils Absolute Auto 4.5 K/mm3 (1.7-7.2); Neutrophils Percent Auto 65.9 % (50.0-70.0); Platelet Count Result 229 K/mm3 (150-420); Red Blood Count 4.01 M/mm3 (4.70-6.10); Red Cell Distribution Width 11.9 % (11.6-14.4); White Blood Count 6.9 K/mm3 (4.8-10.8)
[2022-08-25 12:03] LABS: Partial Thromboplastin Time 26.5 SEC (23.90-30.70); Prothrombin Time 10.6 Seconds (9.50-12.10)
[2022-08-25 12:06] LABS: Alanine Aminotransferase 25 U/L (16-63); Albumin Level 3.6 g/dL (3.4-5.0); Alkaline Phosphatase 64 U/L (46-116); Anion Gap 9 mmol/L (8-16); Aspartate Amino Transferase 45 U/L (15-37); Bilirubin,Total 0.5 mg/dL (0.00-1.00); Blood Urea Nitrogen 17 mg/dL (7-18); Calcium 8.9 mg/dL (8.5-10.1); Carbon Dioxide 28 mmol/L (21-32); Chloride 107 mmol/L (98-108); D Dimer 1.01 mg/L (0.19-0.50); Estimated CRCL calculation 41 ml/min; Estimated Glomerular Filt Rate > 60; Glucose 108 mg/dL (70-99); Osmolality Calculated 300 mOsm/kg (285-295); Potassium 3.8 mmol/L (3.5-5.1); Sodium 144 mmol/L (136-145)
[2022-08-25] MEDS: ASPIRIN 81 MG CHEWABLE TABLET 324 MG PO (12:09)
[2022-08-25] MEDS: HEPARIN SODIUM 5,000 UNITS/ML VIAL 4500 UNITS IV PUSH (12:34)
[2022-08-25] MEDS: HEPARIN SOD/D5W 100 UNITS/ML 25,000 UNITS/250 ML BAG 9 UNITS IV CONT (13:40)
== END 2022-08-25 15:14 | disposition short-term general hospital (02) ==
PROVIDERS: Emergency Provider Emergency Medicine; PCP Internal Medicine
DX: I21.4 Non-ST elevation (NSTEMI) myocardial infarction (principal); Z79.82 Long term (current) use of aspirin
CPT/HCPCS: 36415; 71046; 71275; 80053; 84484; 85025; 85380; 85610; 85730; 93005; 96365; 96366; 99285; A9270; J1644; Q9967

== ENCOUNTER 2022-08-25 15:49 | Inpatient (IN) | payer MEDICARE, OTHER, SELFPAY ==
[2022-08-25 15:50] VITALS: BP 154/85; PULSE 65; RESP 15; TEMP 36.1; O2SAT 98
--- NOTE | 2022-08-25 16:38 | PM.IMHP ---
H&P: HPI History of Present Illness Date/Time: 08/25/22 16:38 Chief Complaint: Chest pain Narrative: This is a 86-year-old male patient who has had no prior history of any coronary artery disease. The patient stated on Wednesday he was pitching hay for his horses any began to have chest pain. He said it was a dull ache and it lasted for several hours. It did not radiate down his arm rope neck. He had no nausea or vomiting with it but did have some associated shortness of breath. The patient stated that he took 2 aspirin that night and went to sleep. His pain came back after he pH take a again on Wednesday and had the discomfort again today. The patient is a lifelong nonsmoker. The patient was seen by his primary care doctor and had an EKG in his office. Is reported that the patient had some ST elevations in lead 2 3 and AVF. The patient was sent to [facility] and no ST elevation was seen. EKG at [facility] was read as atrial fibrillation but the patient has P-waves it did not appear to be AFib per my read. EKG was read as sinus rhythm incomplete right bundle-branch block. Borderline EKG. Here at [facility] the patient is having PE PVCs. Here his H&H is 13.2 and 38.9. His D-dimer was elevated to 1.01 at [facility]. His troponin at [facility] was 2253 per their standards of 0-60. Repeat troponin here is 2.820 and 2.820. The patient has been on a heparin drip. Chest CTA was read as no pulmonary embolus. Mild pulmonary edema. Chest x-ray was read as no acute cardiopulmonary abnormality. Cardiology has been consulted after he was transferred to [facility] from hospital. The patient was a direct admit from [facility]. The patient is being admitted to observation status on the date of service of 08/25/2022. Review of Systems Review of Systems: All systems reviewed & are unremarkable except as noted in HPI and below Constitutional: Constitutional: Reports as per HPI and Reports no additional constitutional complaints Eyes: Eyes: Reports as per HPI and Reports no additional eye complaints ENT: Reports system reviewed and no additional complaints, except as documented and Reports Normal hearing present Cardiovascular: Cardiovascular: Reports no additional cardiovascular complaints Respiratory: Respiratory: Reports no additional respiratory complaints and Reports no additional respiratory complaints Gastrointestinal: Gastrointestinal: Reports as per HPI and Reports no additional gastrointestinal complaints Musculoskeletal: Musculoskeletal: Reports no additional musculoskeletal complaints Integumentary/Breasts: Skin/Breast: Reports system reviewed and no additional complaints, except as docu and Reports as per HPI Neurologic: Reports system reviewed and no additional complaints, except as documented, Reports as per HPI and Reports Normal hearing present Psychiatric: Psychiatric: Reports no additional psychiatric complaints and Reports as per HPI Endocrine: Endocrine: Reports no additional endocrine complaints Hematologic/Lymphatic: Hematologic/Lymphatic: Reports no additional hematologic/lymphatic complaints Allergic/Immunologic: Allergic/Immunologic: Reports no additional allergic/immunologic complaints PMFSH Past Medical History Medical History (Updated 08/25/22 @ 21:28 by Jennifer Jalloh NP) BPH (benign prostatic hyperplasia) DDD (degenerative disc disease) FH: bilateral hip replacements Insomnia Lumbar facet arthropathy Lumbar post-laminectomy syndrome Lumbar radiculopathy, chronic Surgical History Surgical History (Updated 08/25/22 @ 21:23 by Jennifer Jalloh NP) H/O Spinal surgery X2 History of total hip replacement Bilateral Family History Family History (Updated 08/25/22 @ 21:24 by Jennifer Jalloh NP) Father Pneumonia Glaucoma Mother Heart disease Macular degeneration Social History Social History (Updated 08/25/22 @ 21:24 by Rupal
[2022-08-25] MEDS: HEPARIN SOD/D5W 100 UNITS/ML 25,000 UNITS/250 ML BAG 8 UNITS IV CONT (17:13)
[2022-08-25 17:34] VITALS: BMI 24.5
[2022-08-25 17:45] LABS: Basophils Absolute Auto 0.1 K/mm3 (0.0-0.1); Basophils Percent Auto 0.9 % (0.2-1.2); Eosinophils Absolute Auto 0.1 K/mm3 (0-0.3); Hematocrit 38.9 % (42.0-52.0); Hemoglobin 13.2 g/dL (14.0-18.0); Immature Granulocyte Absolute 0.02 K/mm3 (0.00-0.031); Immature Granulocyte Percent A 0.3 % (0-0.5); Lymphocytes Percent Auto 27.2 % (18.3-44.2); Mean Corpuscular HGB Conc 33.9 g/dl (32-36); Mean Corpuscular Hemoglobin 31.8 pg (26-34); Mean Corpuscular Volume 93.7 fl (80-100); Mean Platelet Volume 9.9 fl (7.4-10.4); Monocytes Absolute Auto 0.7 K/mm3 (0.1-0.6); Monocytes Percent Auto 10.2 % (2.6-8.5); Neutrophils Absolute Auto 4.2 K/mm3 (1.3-6.7); Neutrophils Percent Auto 59.4 % (45.5-73.1); Platelet Count Result 215 k/mm3 (150-375); Red Blood Count 4.15 M/mm3 (4.6-6.20); Red Cell Distribution Width 12.2 % (11.5-14.5)
[2022-08-25 17:56] LABS: INR 1.1; Prothrombin Time 13.7 Seconds (11.1-14.7)
[2022-08-25 17:57] LABS: Partial Thromboplastin Time 47.8 SECONDS (22.3-36.8)
[2022-08-25 20:00] VITALS: BP 138/73; PULSE 65; PULSE 89; RESP 18; TEMP 36.7; O2SAT 96
[2022-08-25 23:55] VITALS: BP 117/64; PULSE 76; RESP 18; TEMP 36.4; O2SAT 99
[2022-08-26] VITALS (20 sets, daily range): BP systolic 115–156; BP diastolic 60–92; PULSE 53–95; RESP 13–20; TEMP 36.3–36.7; O2SAT 93–99
--- NOTE | 2022-08-26 | ECHO_ITS ---
Patient Info Name: Jones Del Castillo Age: 86 years : 1935 Gender: Male Ht: 66 in Wt: 152 lbs BSA: 1.80 m2 HR: 74 bpm BP: 119 / 65 mmHg Heart Rhythm: Sinus Rhythm Technical Quality: Fair Exam Date: 08/26/2022 10:25 AM Exam Location: [facility] Pulmonary Exam Room: 210 Patient Status: Inpatient Admit Date: 08/26/2022 Staff Ordering Physician: Jennifer Jalloh NP Truck Trailer Mechanic: Fauzia Kelly RDCS Attending Provider: Rita Ortiz MD Referring Physician: Shubham SAUCEDO; Exam Type: CA echo doppler color flow Study Info Indications - CHEST PAIN Complete two-dimensional, color flow and Doppler transthoracic echocardiogram is performed. Summary 1. Complete two-dimensional, color flow and Doppler transthoracic echocardiogram is performed. 2. Left ventricular chamber dimension is normal. 3. Left ventricular systolic function is normal, estimated at 55-60%. 4. There is mildly increased left ventricular wall thickness. 5. The left ventricular diastolic function is grade I diastolic dysfunction. 6. The basal inferior wall, and mid inferior wall are hypokinetic. 7. Left atrial chamber dimension is mildly enlarged. 8. There is mild aortic valve regurgitation. 9. There is mild to moderate mitral valve regurgitation. 10. There is mild tricuspid valve regurgitation. 11. Mild pulmonary hypertension, estimated pulmonary arterial systolic pressure is 39 mmHg. 12. There is mild pulmonic regurgitation. Left Ventricle Left ventricular chamber dimension is normal. Left ventricular systolic function is normal, estimated at 55-60%. There is mildly increased left ventricular wall thickness. The left ventricular diastolic function is grade I diastolic dysfunction. The basal inferior wall, and mid inferior wall are hypokinetic. All other jernigan appear normal. Right Ventricle Right ventricular chamber dimension is normal. Right ventricular systolic function is normal. Left Atria Left atrial chamber dimension is mildly enlarged. Right Atria Right atrial chamber dimension is normal. Atrial Septum Intact interatrial septum visualized by color flow imaging. Aortic Valve The aortic valve is trileaflet. There is mild aortic valve sclerosis. There is no aortic valve stenosis. There is mild aortic valve regurgitation. Pulmonic Valve The pulmonic valve is normal. There is no pulmonic valve stenosis. There is mild pulmonic regurgitation. Mitral Valve The mitral valve has normal leaflets. There is no mitral valve stenosis. There is mild to moderate mitral valve regurgitation. Tricuspid Valve The tricuspid valve leaflets are normal. There is no significant tricuspid valve stenosis. There is mild tricuspid valve regurgitation. Mild pulmonary hypertension, estimated pulmonary arterial systolic pressure is 39 mmHg. Pericardium/Pleural The pericardium appears normal. There is no pericardial effusion. Inferior Vena Cava Normal inferior vena cava with >50% collapse upon inspiration consistent with normal right atrial pressure, 10 mmHg. Aorta The aortic root size at the sinus of Valsalva is normal. The prox ascending aorta size is normal. Left Ventricular Outflow Tract Name Value Normal LVOT 2D
[2022-08-26 00:24] LABS: Partial Thromboplastin Time 55.2 SECONDS (22.3-36.8)
[2022-08-26] MEDS: HEPARIN SODIUM 5,000 UNITS/ML VIAL 3000 UNITS IV PUSH (00:54)
[2022-08-26 04:35] LABS: Basophils Absolute Auto 0.1 K/mm3 (0.0-0.1); Basophils Percent Auto 1.2 % (0.2-1.2); Eosinophils Absolute Auto 0.2 K/mm3 (0-0.3); Eosinophils Percent Auto 3.2 % (0-4.4); Hematocrit 37.3 % (42.0-52.0); Hemoglobin 12.4 g/dL (14.0-18.0); Immature Granulocyte Absolute 0.01 K/mm3 (0.00-0.031); Immature Granulocyte Percent A 0.1 % (0-0.5); Lymphocytes Absolute Auto 2.36 K/mm3 (0.9-3.2); Lymphocytes Percent Auto 32.5 % (18.3-44.2); Mean Corpuscular HGB Conc 33.2 g/dl (32-36); Mean Corpuscular Hemoglobin 31.4 pg (26-34); Mean Corpuscular Volume 94.4 fl (80-100); Mean Platelet Volume 10.3 fl (7.4-10.4); Monocytes Absolute Auto 0.8 K/mm3 (0.1-0.6); Monocytes Percent Auto 11.4 % (2.6-8.5); Neutrophils Absolute Auto 3.7 K/mm3 (1.3-6.7); Neutrophils Percent Auto 51.6 % (45.5-73.1); Platelet Count Result 219 k/mm3 (150-375); Red Blood Count 3.95 M/mm3 (4.6-6.20); White Blood Count 7.3 K/mm3 (4.5-10.0)
[2022-08-26 04:49] LABS: Alanine Aminotransferase 19 U/L (6-50); Albumin Level 3.7 g/dL (3.5-5.1); Alkaline Phosphatase 57 U/L (38-126); Anion Gap 4 mmol/L (8-16); Aspartate Amino Transferase 46 U/L (17-59); Bilirubin,Total 0.8 mg/dL (0.2-1.3); Blood Urea Nitrogen 16 mg/dL (9-20); Calcium 8.8 mg/dL (8.4-10.2); Carbon Dioxide 27 mmol/L (22-30); Chloride 105 mmol/L (98-107); Estimated CRCL calculation 44 ml/min; Estimated Glomerular Filt Rate > 60; Glucose 89 mg/dL (65-110); Magnesium 1.9 mg/dL (1.6-2.3); Phosphorus 3.8 mg/dL (2.5-4.5); Potassium 3.9 mmol/L (3.4-5.0); Sodium 136 mmol/L (137-145)
[2022-08-26 04:52] LABS: Lactic Acid Reflex 0.8 mmol/L (0.7-2.0)
[2022-08-26 07:50] LABS: Partial Thromboplastin Time 78.4 SECONDS (22.3-36.8)
--- NOTE | 2022-08-26 08:00 | ECG_ITS ---
Measurements Intervals [place] Rate: 70 P: 32 NH: 199 QRS: 69 QRSD: 94 T: 111 QT: 415 QTc: 450 Interpretive Statements SINUS RHYTHM WITH OCCASIONAL VENTRICULAR PREMATURE COMPLEXES NONSPECIFIC T-WAVE ABNORMALITY ABNORMAL ECG Electronically Signed On 08-26-2022 13:48:30 CDT by Jack Becerra M.D.
--- NOTE | 2022-08-26 08:04 | PC.NURSE ---
Upon morning assessment Heparin bag was not scanned, running at 9 ml/hr. APTT confirmed at 07:53. no rate change.
[2022-08-26] MEDS: ATORVASTATIN 40 MG TABLET 80 MG PO (09:57)
[2022-08-26] MEDS: ASPIRIN 81 MG ENTERIC TABLET PO (09:57)
[2022-08-26] MEDS: CLOPIDOGREL BISULFATE 300 MG TABLET 600 MG PO (09:58)
[2022-08-26 10:05] LABS: Cholesterol 158 mg/dL (0-200); HDL Direct 49 mg/dL; Triglycerides 57 mg/dL (<150)
[2022-08-26 10:26] LABS: LDL Cholesterol Direct 88 mg/dL
--- NOTE | 2022-08-26 12:27 | PC.NURSE ---
Patient transported by laboratory immunologist staff to laboratory immunologist at 12:05 for cardiac cath.
--- NOTE | 2022-08-26 14:38 | PM.IMPN ---
Progress Note: A&P Assessment and Plan (1) Non-ST elevation NV (NSTEMI): Code(s): I21.4 - Non-ST elevation (NSTEMI) myocardial infarction Status: Inactive Assessment and Plan: The patient is chest pain started on Wednesday with activity and when way with aspirin and return with activity again. I did not order a stress test as the patient apparently is having chest pain with activity. The patient was started on heparin drip. He has no past medical history of having coronary artery disease. The patient has been taking [place] 3. Patient is not currently having any chest discomfort. He has been fairly healthy and active. The last 2 troponins have been level. Cardiology has been consulted. I suspect that his NSTEMI probably started on Wednesday. I ordered an echo for tomorrow. May consider beta-jacques and statins. 08/26/2022 interval history: 86-year-old male presented emergency department with complaint of chest is found to have a non STEMI significant elevated tropes, patient cardiac echo showed preserved LV function with ejection fraction of 55% and grade 1 diastolic dysfunction patient started on heparin drip, aspirin, loading dose of Plavix, high-dose statin, patient states chest pain has improved, patient seen by Cardiology is scheduled for cardiac catheterization later today will follow-up and monitor, present daughter and granddaughter in the room. (2) BPH (benign prostatic hyperplasia): Code(s): N40.0 - Benign prostatic hyperplasia without lower urinary tract symptoms Status: Acute Assessment and Plan: Continue with tamsulosin Subjective Date/time seen: 08/26/22 14:38 Chest pain HPI-Narrative: This is a 86-year-old male patient who has had no prior history of any coronary artery disease.? The patient stated on Wednesday he was pitching hay for his horses any began to have chest pain.? He said it was a dull ache and it lasted for several hours.? It did not radiate down his arm rope neck.? He had no nausea or vomiting with it but did have some associated shortness of breath.? The patient stated that he took 2 aspirin that night and went to sleep.? His pain came back after he pH take a again on Wednesday and had the discomfort again today.? The patient is a lifelong nonsmoker.? The patient was seen by his primary care doctor and had an EKG in his office.? Is reported that the patient had some ST elevations in lead 2 3 and AVF.? The patient was sent to [facility] and no ST elevation was seen.? EKG at [facility] was read as atrial fibrillation but the patient has P-waves it did not appear to be AFib per my read.? EKG was read as sinus rhythm incomplete right bundle-branch block.? Borderline EKG.? Here at [facility] the patient is having PE PVCs.? Here his H&H is 13.2 and 38.9.? His D-dimer was elevated to 1.01 at [facility].? His troponin at [facility] was 2253 per their standards of 0-60.? Repeat troponin here is 2.820 and 2.820.? The patient has been on a heparin drip.? Chest CTA was read as no pulmonary embolus.? Mild pulmonary edema.? Chest x-ray was read as no acute cardiopulmonary abnormality.? Cardiology has been consulted after he was transferred to [facility] from hospital.? The patient was a direct admit from [facility]. 08/26/2022 interval history: 86-year-old male presented emergency department with complaint of chest is found to have a non STEMI significant elevated tropes, patient cardiac echo showed preserved LV function with ejection fraction of 55% and grade 1 diastolic dysfunction patient started on heparin drip, aspirin, loading dose of Plavix, high-dose statin, patient states chest pain has improved, patient seen by Cardiology is scheduled for cardiac catheterization later today will follow-up and monitor, present daughter and granddaughter in the room. Review of Systems Review of Systems: All systems reviewed & are unremarkable except as noted
--- NOTE | 2022-08-26 14:48 | PM.CNCAR ---
Assessment and Plan Assessment and plan (1) NSTEMI (non-ST elevated myocardial infarction): Code(s): I21.4 - Non-ST elevation (NSTEMI) myocardial infarction Status: Acute Plan Given NSTEMI with significant troponin elevation, recommended cardiac cath. Discussed the procedure details with the patient, including procedural details, risks vs benefits, post cath care, alternative management options. Patient agreed to cath. Cardiac cath done this afternoon which showed significant obstructive lesion in the mid RCA. Underwent PCI with TEJ x 1. No periprocedural complications. Will need to be on ASA 81mg once daily indefinitely. Loaded with Plavix 600mg. Continue Plavix 75mg once daily for at least 1 year. Will start beta jacques. High-intensity statin. Referral to cardiac rehab placed. Echo showed LVEF 55-60% with hypokinesis of the basal inferior and mid inferior jernigan. There is mild AI, mild-moderate MR, mild TR, mild MI. Anticipate discharge home tomorrow. We will arrange outpatient follow up in our clinic. History of Present Illness History of Present Illness Consult date/time: 08/26/22 14:48 Requesting physician: Jennifer Jalloh NP Consult reason: chest pain Reason For Visit: Chest Pain/NSTEMI Narrative: We are consulted for NSTEMI. This is an 86-year-old male with a history of spinal surgery who had acute sudden onset of substernal chest pain on Wednesday when pitchforking hay for his horses. Chest pain was heavy and lasted all day. Had recurrence of his chest pain on Wednesday. Went to go see his PCP yesterday morning and had concerns for abnormal ECG with possible inferior ST elevations. He was immediately sent to [place] [facility], where EKG did not show STEMI. Troponins elevated. Patient transferred to Telephone for further management of NSTEMI. Patient is comfortable this morning upon my evaluation. No prior history of cardiac disease. Review of Systems Review of Systems: All systems reviewed & are unremarkable except as noted in HPI and below (HPI) [facility] Past Medical History Medical History BPH (benign prostatic hyperplasia) DDD (degenerative disc disease) FH: bilateral hip replacements Insomnia Lumbar facet arthropathy Lumbar post-laminectomy syndrome Lumbar radiculopathy, chronic Surgical History Surgical History H/O Spinal surgery X2 History of total hip replacement Bilateral Family History Family History Father Pneumonia Glaucoma Mother Heart disease Macular degeneration Social History Social History Social History: The patient lives with his . He has 4 children. He is retired from [employer] . Code status full code Smoking status: Never smoker Alcohol intake: never Drinks per week: 1 Substance use: never Substance use type: does not use Lack of Transportation: No Lack of Food: Never True Current Housing: I Have Housing Concerned About Future Housing: No Difficulty Paying Gas/Electric Bills: No Difficulty Paying for Meds: No Currently Unemployed: No Education: High School Diploma/GED Difficulty w/ Childcare or Family Care: No Living arrangements: with family Additional living arrangements comments: Spiritual care concerns: No Meds Home Medications and Allergies Home Medications Medication Instructions Recorded Confirmed Type aspirin 81 mg tablet,delayed 81 mg PO EVERY OTHER DAY 12/08/21 08/25/22 History release omega 0-uvd-ruk-fish oil 60 mg-90 1 cap PO HS 12/08/21 08/25/22 History mg-500 mg capsule (Fish Oil) tamsulosin 0.4 mg capsule 0.4 mg PO HS 04/20/22 08/25/22 History krill oil 500 mg capsule 500 mg PO HS 08/25/22 08/25/22 History vszwwkwcaurn-bhxtxcsf-omgjqf tablet 1 tablet PO DAILY 08/25/22
--- NOTE | 2022-08-26 14:55 | WPDMODSED ---
Moderate Sedation Note-Pt Data Patient Data Diagnosis: NSTEMI Present Complaint: NSTEMI Procedure to be performed/Plan: Coronary angiography, [facility], +/- PCI Allergies Allergy/AdvReac Type Severity Reaction Status Date / Time No Known Allergies Allergy Verified 08/25/22 11:43 Home Medications Medication Instructions Recorded Confirmed Type aspirin 81 mg tablet,delayed 81 mg PO EVERY OTHER DAY 12/08/21 08/25/22 History release omega 6-gqs-pmq-fish oil 60 mg-90 1 cap PO HS 12/08/21 08/25/22 History mg-500 mg capsule (Fish Oil) tamsulosin 0.4 mg capsule 0.4 mg PO HS 04/20/22 08/25/22 History krill oil 500 mg capsule 500 mg PO HS 08/25/22 08/25/22 History urmvkqacpmnl-vrhvxsgw-aculue tablet 1 tablet PO DAILY 08/25/22 08/25/22 History Current Medications: Active Medications Acetaminophen (Acetaminophen 325 Mg Tablet) 650 mg PO Q4H PRN PRN Reason: Mild Pain (1-3) or Fever Aspirin (Aspirin 81 Mg Enteric Tablet) 81 mg PO QAM [facility] Last Admin: 08/26/22 09:57 Dose: 81 mg Atorvastatin Calcium (Atorvastatin 40 Mg Tablet) 80 mg PO DAILY [facility] Last Admin: 08/26/22 09:57 Dose: 80 mg Clopidogrel Bisulfate (Clopidogrel Bisulfate 75 Mg Tablet) 75 mg PO QAM [facility] Fish Oil ([place] 3 Polyunsat Fatty Acids 1 Gm Cap) 1 gm PO Q48H [facility] Heparin Sodium (Porcine) (Heparin Sodium 5,000 Units/Ml Vial) 4,000 units IV PUSH PRN PRN PRN Reason: aPTT less than 55 seconds Heparin Sodium (Porcine) (Heparin Sodium 5,000 Units/Ml Vial) 3,000 units IV PUSH PRN PRN PRN Reason: aPTT 55 - 70 seconds Last Admin: 08/26/22 00:54 Dose: 3,000 units Heparin Sodium/Dextrose (Heparin Sodium/D5w 100 Units/Ml) 25,000 units in 250 mls @ 9 mls/hr IV CONT .Q24H [facility]; Protocol Last Titration: 08/26/22 07:46 Dose: 900 units/hr, 9 mls/hr Sodium Chloride (Normal Saline Iv) 1,000 mls @ 125 mls/hr IV CONT .Q8H ONE Stop: 08/26/22 22:45 Metoprolol Succinate (Metoprolol Succinate Ext Rel 25 Mg Tabcr) 25 mg PO QAM [facility] Morphine Sulfate (Morphine Sulfate (*Crx) 2 Mg/Ml Inj) 2 mg IV PUSH Q4H PRN PRN Reason: Pain Rated 7-10 Ondansetron HCl (Ondansetron Inj 4 Mg/2 Ml Vial) 4 mg IV PUSH Q6H PRN PRN Reason: Nausea And Vomiting Perflutren Lipid Microsphere (Perflutren Lipid Microspheres 1.5 Ml Vial Diluted To 10 Ml Total Volume) 0 ml IV PUSH ONCE PRN; Protocol PRN Reason: adequate visualization Stop: 08/27/22 21:17 Tamsulosin HCl (Tamsulosin Hcl 0.4 Mg Capsule) 0.4 mg PO HS [facility] Sedation/Anesthesia: No previous sedation/anesthesia problems (including family history). PMFSH Past Medical History Medical History BPH (benign prostatic hyperplasia) DDD (degenerative disc disease) FH: bilateral hip replacements Insomnia Lumbar facet arthropathy Lumbar post-laminectomy syndrome Lumbar radiculopathy, chronic Surgical History Surgical History H/O Spinal surgery X2 History of total hip replacement Bilateral Family History Family History Father Pneumonia Glaucoma Mother Heart disease Macular degeneration Social History Social History Social History: The patient lives with his . He has 4 children. He is retired from [employer] . Code status full code Smoking status: Never smoker Alcohol intake: never Drinks per week: 1 Substance use: never Substance use type: does not use Lack of Transportation: No Lack of Food: Never True Current Housing: I Have Housing Concerned About Future Housing: No Difficulty Paying Gas/Electric Bills: No Difficulty Paying for Meds: No Currently Unemployed: No Education: High School Diploma/GED Difficulty w/ Childcare or Family Care: No Living arrangements: with family Additional living arrangements comments: Spiritual care concerns: No Mod
--- NOTE | 2022-08-26 14:56 | WPDCARDPROC ---
Cardiac Cath Procedure Note Date of procedure:: 08/26/22 Performing physician:: CATHETERIZATION LABORATORY REPORT Procedure Date: 08/26/2022 Camera Tuning Engineer: Filemon Mitchell M.D., [facility]? Referring Physician: Filemon Mitchell M.D. ? Anesthesia: Versed and Fentanyl were ordered and given in my presence at 12:32, procedure ended at 14:35. Supervision of nurse monitored moderate sedation with Versed and Fentanyl was provided for 123 minutes. Total of Versed 2mg and Fentanyl 125mcg were administered by the Steward/Stewardess [employer] Car RN Shazia Knight. Procedure time increased due to the complexity of the case and complex PCI. Pre-op Diagnosis: NSTEMI / ACS Post-op Diagnosis: 99% mid RCA stenosis s/p successful PCI with TEJ x 1. 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 Right dominant coronary artery system. Procedure(s): 1. Moderate sedation 2. Ultrasound-guided access of the right radial artery 3. Ultrasound-guided access of the right common femoral artery 4. Coronary angiography 5. PCI of the mid RCA with TEJ x 1 6. Angioseal closure of the right common femoral artery Access Site: Right radial artery Right common femoral artery Brief History and Clinical Indications: Patient is an 86 year old male who is referred for [facility] for NSTEMI. All risks, benefits and alternatives to left heart catheterization with or without percutaneous coronary intervention was discussed at length with the patient. Risk of complications including but not limited to bleeding, infection, arrhythmia, stroke, worsening kidney function, blood loss, groin hematoma, limb loss, emergency coronary artery bypass grafting, and even were discussed with the patient and all questions were answered. The patient understood and wished to proceed. Time out called, patient name, date of , medical record number, allergies, procedure performed, identify Camera Tuning Engineer, patient and staff member concurred with accurate data, procedure carried on. Findings: LEFT HEART CATHETERIZATION FINDINGS: 1. Left main: The left main coronary artery is widely patent without any significant obstructive disease. 2. Left anterior descending: The LAD has diffuse mild disease without any significant obstructive angiographic disease. Diagonal 1 vessel is a small caliber vessel with moderate disease in its proximal portion and mid portion. 3. Left circumflex: The proximal LCX has mild diffuse disease. OM-1 vessel bifurcates into two branches. OM-1 and its branches have mild luminal irregularities. OM-2 has a moderate stenosis in its mid section. 4. Right coronary artery: The RCA is the dominant vessel. The proximal RCA has mild diffuse disease. The proximal RCA has an approximate 90 degree bend in its course. The mid RCA has a significant 99% stenosis. The distal RCA has mild diffuse disease. Description of Procedure: Informed consent signed and placed in the chart. Patient transferred to engineer geophysical laboratory room. Prepped and draped in usual sterile fashion. 2% lidocaine injected subcutaneously in right wrist area. 22-gauge venipuncture catheter used to access the right radial artery with the Seldinger technique. 6-FR slender sheath placed in right radial artery. Nitroglycerine and Verapamil were given intraarterial through the sheath. Unable to advance the Versacore wire in the radial artery past the elbow. Therefore, femoral access pursued. 2% lidocaine in right groin area. Micropuncture needle used to access right common femoral artery with Seldinger technique under fluoroscopic guidance. J wire advanced, micropuncture cannula placed. Right iliofemoral angiogram performed, access confirmed and micropuncture cannula exchanged for 6-FR 23mm sheath (longer sheath used due to iliac tortuosity). 5F FL4 diagnostic catheter engaged Left Main Coronary Artery. 5F FR4 diagnostic catheter engaged Right Coronary Artery. Multiple orthogonal angiogram obtained and reviewed Decision made to p
--- NOTE | 2022-08-26 15:13 | ECG_ITS ---
Measurements Intervals [place] Rate: 64 P: 33 [place]: 194 QRS: -11 QRSD: 93 T: -52 QT: 427 QTc: 443 Interpretive Statements SINUS RHYTHM INFERIOR MYOCARDIAL INFARCTION , OF INDETERMINATE AGE WITH POSTERIOR EXTENSION [40+ ms Q WAVE AND/OR ST/T ABNORMALITY IN II/aV COMPARED TO ECG 08/26/2022 07:54:52 MYOCARDIAL INFARCT FINDING NOW PRESENT Electronically Signed On 08-26-2022 16:15:16 CDT by Filemon Mitchell M.D.
--- NOTE | 2022-08-26 16:34 | SUR.PHASEII ---
HOB elevated 30 degrees at 1630. Pt isamar drake.
[2022-08-26] MEDS: TAMSULOSIN HCL 0.4 MG CAPSULE PO (20:32)
[2022-08-26] MEDS: OMEGA 3 POLYUNSAT FATTY ACIDS 1 GM CAP PO (20:32)
[2022-08-27] VITALS (15 sets, daily range): BP systolic 109–133; BP diastolic 63–76; PULSE 67–106; RESP 14–20; TEMP 36.4–37.2; O2SAT 95–98
--- NOTE | 2022-08-27 06:32 | PC.NURSE ---
Cardiopulmonary Rehab Services flyer was given to patient.
[2022-08-27] MEDS: ASPIRIN 81 MG ENTERIC TABLET PO (09:09)
[2022-08-27] MEDS: ATORVASTATIN 40 MG TABLET 80 MG PO (09:10)
[2022-08-27] MEDS: METOPROLOL SUCCINATE EXT REL 25 MG TABCR PO (09:10)
[2022-08-27] MEDS: CLOPIDOGREL BISULFATE 75 MG TABLET PO (09:11)
--- NOTE | 2022-08-27 10:27 | PM.PNCARD ---
Progress Note: A&P Assessment and Plan (1) NSTEMI (non-ST elevated myocardial infarction): Code(s): I21.4 - Non-ST elevation (NSTEMI) myocardial infarction Status: Acute Plan Given NSTEMI with significant troponin elevation, recommended cardiac cath. Cardiac cath done yesterday afternoon which showed significant obstructive lesion in the mid RCA. Underwent PCI with TEJ x 1. No periprocedural complications. Will need to be on ASA 81mg once daily indefinitely. Loaded with Plavix 600mg. Continue Plavix 75mg once daily for at least 1 year. Will start beta jacques. High-intensity statin. Referral to cardiac rehab placed. Echo showed LVEF 55-60% with hypokinesis of the basal inferior and mid inferior jernigan. There is mild AI, mild-moderate MR, mild TR, mild NH. OK for discharge home today. He will follow up in our clinic. Subjective Date/time seen: 08/27/22 10:27 Cardiology follow up for CAD, NSTEMI He is feeling well this morning. Denies any chest pain, shortness of breath, or palpitations. Review of Systems Review of Systems: All systems reviewed & are unremarkable except as noted in HPI and below (HPI) Exam Const: General: comfortable and no acute distress HENMT: Mouth: Yes moist mucous membranes Eyes: General: appearance normal, both eyes and all related structures Sclera: sclerae normal Neck: Neck: supple Resp: Effort & Inspection: normal respiratory effort Auscultation: clear to auscultation bilaterally Cardio: Rate: regular rate Rhythm: regular rhythm Heart sounds: no murmurs Skin: General skin exam: normal color Neuro: Speech: normal speech Extrem: General: normal to inspection Other: Arm board remains in place. Radial pulse intact. No bleeding or hematoma surrounding arterial access site Psych: Mental Status: mental status grossly normal Affect: normal affect Objective Data Vital Signs Vital Signs: Vital Signs - 24 hr 08/26/22 12:00 08/26/22 12:00 08/26/22 15:22 Temperature Pulse Rate 85 72 Respiratory Rate 18 Blood Pressure 133/72 Pulse Oximetry 93 96 Oxygen Delivery Room Air Room Air 08/26/22 16:00 08/26/22 16:30 08/26/22 17:00 Temperature Pulse Rate 65 75 71 Respiratory Rate 13 13 17 Blood Pressure 132/70 128/75 145/73 H Pulse Oximetry 96 98 98 Oxygen Delivery Room Air Room Air Room Air 08/26/22 17:30 08/26/22 15:30 08/26/22 15:45 Temperature Pulse Rate 73 75 75 Respiratory Rate 17 17 15 Blood Pressure 156/78 H 139/82 142/75 H Pulse Oximetry 96 97 96 Oxygen Delivery Room Air Room Air Room Air 08/26/22 16:15 08/26/22 17:50 08/26/22 17:50 Temperature Pulse Rate 69 75 Respiratory Rate 16 Blood Pressure 144/80 H Pulse Oximetry 96 93 Oxygen Delivery Room Air Room Air 08/26/22 18:00 08/26/22 18:00 08/26/22 20:00 Temperature 36.3 C L 36.5 C Pulse Rate 85 95 89 Respiratory Rate 16 20 Blood Pressure 143/92 H 117/62 Pulse Oximetry 97 99 Oxygen Delivery 08/26/22 20:00 08/26/22 20:00 08/27/22 00:00 Temperature Pulse Rate 78 Respiratory Rate Blood Pressure Pulse Oximetry 99 98 Oxygen Delivery Room Air Room Air 08/27/22 00:00 08/26/22 22:00 08/26/22 23:11 Temperature 36.6 C Pulse Rate 73 77 78 Respiratory Rate 20 Blood Pressure 139/86 Pulse Oximetry 98 Oxygen Delivery 08/26/22 21:00 08/26/22 19:00 08/27/22 02:00 Temperature 36.6 C 36.6 C Pulse Rate 85 88 82 Respiratory Rate 18 20 Blood Pressure 115/60 120/60 Pulse Oximetry 99 97 Oxygen Delivery 08/27/22 04:00 08/27/22 04:00 08/27/22 04:00 Temperature 36.6 C Pulse Rate 78 81 Respiratory Rate 20 Blood Pressure 109/63 Pulse Oximetry 97 97 Oxygen Delivery Room Air 08/27/22 06:00 08/27/22 09:10 08/27/22 08:00 Temperature 36.6 C Pulse Rate 74 85 85 Respiratory Rate 14 Blood Pressure 124/76 Pulse Oximetry 95 Oxygen Delivery Intake/Output Intake/Output: Intake & Outp
--- NOTE | 2022-08-27 11:09 | PM.IMPN ---
Progress Note: A&P Assessment and Plan (1) Non-ST elevation HI (NSTEMI): Code(s): I21.4 - Non-ST elevation (NSTEMI) myocardial infarction Status: Inactive Assessment and Plan: The patient is chest pain started on Wednesday with activity and when way with aspirin and return with activity again. I did not order a stress test as the patient apparently is having chest pain with activity. The patient was started on heparin drip. He has no past medical history of having coronary artery disease. The patient has been taking [place] 3. Patient is not currently having any chest discomfort. He has been fairly healthy and active. The last 2 troponins have been level. Cardiology has been consulted. I suspect that his NSTEMI probably started on Wednesday. I ordered an echo for tomorrow. May consider beta-jacques and statins. 08/26/2022 interval history: 86-year-old male presented emergency department with complaint of chest is found to have a non STEMI significant elevated tropes, patient cardiac echo showed preserved LV function with ejection fraction of 55% and grade 1 diastolic dysfunction patient started on heparin drip, aspirin, loading dose of Plavix, high-dose statin, patient states chest pain has improved, patient seen by Cardiology is scheduled for cardiac catheterization later today will follow-up and monitor, present daughter and granddaughter in the room 08/27/2022: Presented with chest pain found to have elevated troponin. Diagnosed with non ST-elevation HI. cardiac echo with preserved ejection fraction 55% grade 1 diastolic dysfunction. Patient was started on heparin drip aspirin loaded with Plavix and high-dose statin. Status post cardiac catheterization right showed significant obstructive lesion mid RCA underwent PCI with TEJ x1. Continue tPA PT high-dose statin and beta-jacques. (2) BPH (benign prostatic hyperplasia): Code(s): N40.0 - Benign prostatic hyperplasia without lower urinary tract symptoms Status: Acute Assessment and Plan: Continue with tamsulosin Subjective Date/time seen: 08/27/22 11:09 Interval history: feels well. No new complaints. No chest pain or shortness of breath. Ambulating okay. Review of Systems Review of Systems: All systems reviewed & are unremarkable except as noted in HPI and below Exam Narrative: Patient is comfortable, NAD HEENT: eyes are clear and none icteric LUNGS: Normal respiratory effort clear to auscultation ABD: Not distended soft nontender Lower extremities: no edema Cyanosis clubbing SKIN: nonjaundiced Neuro: grossly intact. Objective Data Vital Signs Vital Signs: Vital Signs - 24 hr 08/26/22 12:00 08/26/22 12:00 08/26/22 15:22 Temperature Pulse Rate 85 72 Respiratory Rate 18 Blood Pressure 133/72 Pulse Oximetry 93 96 Oxygen Delivery Room Air Room Air 08/26/22 16:00 08/26/22 16:30 08/26/22 17:00 Temperature Pulse Rate 65 75 71 Respiratory Rate 13 13 17 Blood Pressure 132/70 128/75 145/73 H Pulse Oximetry 96 98 98 Oxygen Delivery Room Air Room Air Room Air 08/26/22 17:30 08/26/22 15:30 08/26/22 15:45 Temperature Pulse Rate 73 75 75 Respiratory Rate 17 17 15 Blood Pressure 156/78 H 139/82 142/75 H Pulse Oximetry 96 97 96 Oxygen Delivery Room Air Room Air Room Air 08/26/22 16:15 08/26/22 17:50 08/26/22 17:50 Temperature Pulse Rate 69 75 Respiratory Rate 16 Blood Pressure 144/80 H Pulse Oximetry 96 93 Oxygen Delivery Room Air Room Air 08/26/22 18:00 08/26/22 18:00 08/26/22 20:00 Temperature 97.4 F L 97.7 F Pulse Rate 85 95 89 Respiratory Rate 16 20 Blood Pressure 143/92 H 117/62 Pulse Oximetry 97 99 Oxygen Delivery 08/26/22 20:00 08/26/22 20:00 08/27/22 00:00 Temperature Pulse Rate 78 Respiratory Rate Blood Pressure Pulse Oximetry 99 98 Oxygen Delivery Room Air Room Air 08/27/22 00:00 08/26/22 22:00 08/26/22 23:11 Temperature
--- NOTE | 2022-08-27 13:50 | ECG_ITS ---
Measurements Intervals [place] Rate: 102 P: 36 [place]: 250 QRS: -32 QRSD: 97 T: -30 QT: 343 QTc: 449 Interpretive Statements SINUS TACHYCARDIA WITH FIRST DEGREE AV BLOCK MARKED LEFT AXIS DEVIATION [QRS AXIS < -30] POSSIBLE INFERIOR MYOCARDIAL INFARCTION , OLD COMPARED TO ECG 08/26/2022 15:19:06 SINUS TACHYCARDIA NOW PRESENT FIRST DEGREE AV BLOCK NOW PRESENT Electronically Signed On 08-27-2022 14:25:23 CDT by Filemon Mitchell M.D.
[2022-08-27 17:15] LABS: Hematocrit 40.6 % (42.0-52.0); Hemoglobin 13.6 g/dL (14.0-18.0); Mean Corpuscular HGB Conc 33.5 g/dl (32-36); Mean Corpuscular Hemoglobin 31.6 pg (26-34); Mean Corpuscular Volume 94.2 fl (80-100); Mean Platelet Volume 10.2 fl (7.4-10.4); Platelet Count Result 236 k/mm3 (150-375); Red Blood Count 4.31 M/mm3 (4.6-6.20); Red Cell Distribution Width 12.2 % (11.5-14.5); White Blood Count 7.8 K/mm3 (4.5-10.0)
[2022-08-27 17:21] LABS: Alanine Aminotransferase 21 U/L (6-50); Albumin Level 4.2 g/dL (3.5-5.1); Alkaline Phosphatase 62 U/L (38-126); Anion Gap 6 mmol/L (8-16); Aspartate Amino Transferase 54 U/L (17-59); Bilirubin,Total 1.1 mg/dL (0.2-1.3); Blood Urea Nitrogen 19 mg/dL (9-20); Calcium 9.2 mg/dL (8.4-10.2); Carbon Dioxide 28 mmol/L (22-30); Chloride 103 mmol/L (98-107); Estimated CRCL calculation 44 ml/min; Estimated Glomerular Filt Rate > 60; Glucose 105 mg/dL (65-110); Sodium 137 mmol/L (137-145)
[2022-08-27 17:53] LABS: Appearance Urine Clear (Clear); Bilirubin Urine Negative (Negative); Blood Urine Negative (Negative); Color Urine Yellow (Yellow); Glucose Urine UA Negative (Negative); Ketones Urine Negative (Negative); Leukocyte Esterase Ur Negative LEU/UL (NEGATIVE); Nitrate Urine Negative (Negative); Protein Urine Negative (Negative); Specific Grav Ur 1.008 (1.001-1.035); Urobilinogen Urine 0.2 mg/dL (<2.0); pH Urine 7.5 (5.0-9.0)
[2022-08-27 18:01] LABS: Add Urine Microscopic? NO
[2022-08-27] MEDS: SODIUM CHLORIDE 0.9% IV 500 ML 125 ML IV CONT (18:26)
[2022-08-27] MEDS: TAMSULOSIN HCL 0.4 MG CAPSULE PO (21:16)
[2022-08-28] VITALS (9 sets, daily range): BP systolic 114–127; BP diastolic 62–87; PULSE 67–93; RESP 14–16; TEMP 36.2–36.8; O2SAT 95–97
[2022-08-28 05:30] LABS: Basophils Absolute Auto 0.1 K/mm3 (0.0-0.1); Basophils Percent Auto 0.9 % (0.2-1.2); Eosinophils Absolute Auto 0.3 K/mm3 (0-0.3); Eosinophils Percent Auto 3.3 % (0-4.4); Hematocrit 40.1 % (42.0-52.0); Hemoglobin 13.3 g/dL (14.0-18.0); Immature Granulocyte Absolute 0.02 K/mm3 (0.00-0.031); Immature Granulocyte Percent A 0.2 % (0-0.5); Lymphocytes Percent Auto 20.7 % (18.3-44.2); Mean Corpuscular HGB Conc 33.2 g/dl (32-36); Mean Corpuscular Hemoglobin 31.4 pg (26-34); Mean Corpuscular Volume 94.8 fl (80-100); Mean Platelet Volume 10.4 fl (7.4-10.4); Monocytes Percent Auto 11.6 % (2.6-8.5); Neutrophils Absolute Auto 5.5 K/mm3 (1.3-6.7); Neutrophils Percent Auto 63.3 % (45.5-73.1); Platelet Count Result 221 k/mm3 (150-375); Red Blood Count 4.23 M/mm3 (4.6-6.20); Red Cell Distribution Width 12.2 % (11.5-14.5); White Blood Count 8.7 K/mm3 (4.5-10.0)
[2022-08-28 05:35] LABS: Alanine Aminotransferase 20 U/L (6-50); Albumin Level 3.9 g/dL (3.5-5.1); Alkaline Phosphatase 61 U/L (38-126); Anion Gap 7 mmol/L (8-16); Aspartate Amino Transferase 48 U/L (17-59); Bilirubin,Total 1.1 mg/dL (0.2-1.3); Blood Urea Nitrogen 18 mg/dL (9-20); Carbon Dioxide 27 mmol/L (22-30); Chloride 104 mmol/L (98-107); Estimated CRCL calculation 40 ml/min; Estimated Glomerular Filt Rate > 60; Glucose 94 mg/dL (65-110); Potassium 3.9 mmol/L (3.4-5.0); Sodium 138 mmol/L (137-145)
--- NOTE | 2022-08-28 07:00 | ECG_ITS ---
Measurements Intervals [place] Rate: 67 P: 19 [place]: 218 QRS: -27 QRSD: 94 T: -23 QT: 400 QTc: 423 Interpretive Statements SINUS RHYTHM WITH FIRST DEGREE AV BLOCK CANNOT RULE OUT INFERIOR INFARCTION, AGE INDETERMINATE BORDERLINE ECG COMPARED TO ECG 08/27/2022 14:00:27 HEART RATE HAS DECREASED Electronically Signed On 08-29-2022 14:53:30 CDT by Gerardo Yip M.D.
[2022-08-28] MEDS: ASPIRIN 81 MG ENTERIC TABLET PO (08:45)
[2022-08-28] MEDS: ATORVASTATIN 40 MG TABLET 80 MG PO (08:45)
[2022-08-28] MEDS: METOPROLOL SUCCINATE EXT REL 25 MG TABCR PO (08:45)
[2022-08-28] MEDS: CLOPIDOGREL BISULFATE 75 MG TABLET PO (08:46)
--- NOTE | 2022-08-28 09:46 | PM.PNCARD ---
Progress Note: A&P Assessment and Plan (1) NSTEMI (non-ST elevated myocardial infarction): Code(s): I21.4 - Non-ST elevation (NSTEMI) myocardial infarction Status: Acute Plan Given NSTEMI with significant troponin elevation, recommended cardiac cath. Cardiac cath done yesterday afternoon which showed significant obstructive lesion in the mid RCA. Underwent PCI with TEJ x 1. No periprocedural complications. Will need to be on ASA 81mg once daily indefinitely. Loaded with Plavix 600mg. Continue Plavix 75mg once daily for at least 1 year. Will start beta jacques. High-intensity statin. Referral to cardiac rehab placed. Echo showed LVEF 55-60% with hypokinesis of the basal inferior and mid inferior jernigan. There is mild AI, mild-moderate MR, mild TR, mild CA. Had some tachycardia and palpitations yesterday afternoon, was given fluids and remained hospitalized overnight for observation. In NSR today, no further palpitations. OK for discharge home today. He will follow up in our clinic. Subjective Date/time seen: 08/28/22 09:46 Cardiology follow up for CAD, NSTEMI Continues to feel well this morning. No chest pain, shortness of breath, or palpitations. Review of Systems Review of Systems: All systems reviewed & are unremarkable except as noted in HPI and below (HPI) Exam Const: General: comfortable and no acute distress HENMT: Mouth: Yes moist mucous membranes Eyes: General: appearance normal, both eyes and all related structures Sclera: sclerae normal Neck: Neck: supple Resp: Effort & Inspection: normal respiratory effort Auscultation: clear to auscultation bilaterally Cardio: Rate: regular rate Rhythm: regular rhythm Heart sounds: no murmurs Skin: General skin exam: normal color Neuro: Speech: normal speech Extrem: General: normal to inspection Other: right radial pulse intact. No bleeding or hematoma surrounding arterial access sites on R radial and R fem Psych: Mental Status: mental status grossly normal Affect: normal affect Objective Data Vital Signs Vital Signs: Vital Signs - 24 hr 08/27/22 12:00 08/27/22 17:18 08/27/22 10:00 Temperature 36.7 C 36.7 C Pulse Rate 74 105 H 93 Respiratory Rate 14 20 Blood Pressure 118/66 133/65 Pulse Oximetry 97 95 08/27/22 12:00 08/27/22 14:00 08/27/22 16:00 Temperature Pulse Rate 79 103 H 106 H Respiratory Rate Blood Pressure Pulse Oximetry 08/27/22 18:00 08/27/22 20:00 08/27/22 23:31 Temperature 37.2 C 36.4 C Pulse Rate 84 74 72 Respiratory Rate 16 16 Blood Pressure 131/67 118/67 Pulse Oximetry 98 98 08/27/22 20:00 08/27/22 22:00 08/28/22 00:00 Temperature Pulse Rate 77 67 67 Respiratory Rate Blood Pressure Pulse Oximetry 08/28/22 02:00 08/28/22 04:00 08/28/22 06:00 Temperature Pulse Rate 69 79 67 Respiratory Rate Blood Pressure Pulse Oximetry 08/28/22 04:00 08/28/22 08:00 08/28/22 08:00 Temperature 36.2 C L 36.8 C Pulse Rate 69 75 81 Respiratory Rate 16 14 Blood Pressure 114/62 122/74 Pulse Oximetry 95 96 08/28/22 08:45 Temperature Pulse Rate 93 Respiratory Rate Blood Pressure Pulse Oximetry Intake/Output Intake/Output: Intake & Output 08/25/22 08/26/22 08/27/22 08/28/22 23:59 23:59 23:59 23:59 Intake Total 187 371 1770 900 Output Total 150 2250 950 300 Balance 90 -1410 230 600 Meds/Results Medications: Active Medications Generic Name Dose Route Start Last Admin Trade Name Freq PRN Reason Stop Dose Admin Acetaminophen 650 mg 08/25/22 16:55 Acetaminophen 325 Mg Tablet PO Q4H PRN Mild Pain (1-3) or Fever Aspirin 81 mg 08/26/22 10:00 08/28/22 08:45 Aspirin 81 Mg Enteric Tablet PO 81 mg QAM SANGITA Administration Atorvastatin Calcium 80 mg 08/26/22 10:00 08/28/22 08:45 Atorvastatin 40 Mg Tablet PO 80 mg DAILY SANGITA Administration Clopidogrel Bisulfate 75 mg 08/27/22 09:00 04
--- NOTE | 2022-08-28 11:40 | PM.DS ---
DS: Admitting Diagnosis Discharge Date 08/28/2022 Admitting Diagnosis chest pain DS: Discharge Diagnosis Discharge Diagnosis (1) Non-ST elevation MO (NSTEMI): Code(s): I21.4 - Non-ST elevation (NSTEMI) myocardial infarction Status: Inactive (2) BPH (benign prostatic hyperplasia): Code(s): N40.0 - Benign prostatic hyperplasia without lower urinary tract symptoms Status: Acute DS: Summary Hospital Course Hospital Course: The patient presented with chest pain started on Wednesday with activity and when way with aspirin and return with activity again.? patient elevated troponin. Diagnosis non ST-elevation MO. Cardiac echo with preserved ejection fraction 55% grade 1 diastolic dysfunction. Patient was started on heparin drip. He was loaded with aspirin and Plavix and high-dose statin. He underwent cardiac catheterization which showed significant obstructive lesion mid RCA and underwent PCI with TEJ x1. Continue DA PT high-dose statin and beta-jacques as ordered. Follow-up with cardiology as an outpatient basis. Time Spent with Patient Time attestation: Total time spent providing and/or coordinating discharge services:30 minutes Exam Narrative: Patient is comfortable, NAD HEENT: eyes are clear and none icteric LUNGS: Normal respiratory effort clear to auscultation ABD: Not distended soft nontender Lower extremities: no edema Cyanosis clubbing SKIN: nonjaundiced Neuro: grossly intact. DS: Data Data Completed and Pending Labs on day of discharge: Labs from last 24 hours 08/28/22 08/28/22 08/27/22 04:53 04:53 17:19 WBC 8.7 RBC 4.23 L Hgb 13.3 L Hct 40.1 L MCV 94.8 MCH 31.4 MCHC 33.2 RDW 12.2 Plt Count 221 MPV 10.4 Immature Gran % (Auto) 0.2 Neut % (Auto) 63.3 Lymph % (Auto) 20.7 Yates % (Auto) 11.6 H Eos % (Auto) 3.3 Baso % (Auto) 0.9 Lymph # (Auto) 1.80 Yates # (Auto) 1.0 H Eos # (Auto) 0.3 Baso # (Auto) 0.1 Abs Immat Gran (auto) 0.02 Absolute Neuts (auto) 5.5 Absolute Nucleated RBC 0.0 Nucleated RBC % 0.0 Sodium 138 Potassium 3.9 Chloride 104 Carbon Dioxide 27 Anion Gap 7 L BUN 18 Creatinine 1.10 Estim Creat Clear Calc 40 Estimated GFR > 60 Glucose 94 Calcium 9.0 Magnesium 2.0 Total Bilirubin 1.1 AST 48 ALT 20 Alkaline Phosphatase 61 Total Protein 6.0 L Albumin 3.9 Urine Color Yellow Urine Appearance Clear Urine pH 7.5 Ur Specific [place] 1.008 Urine Protein Negative Urine Glucose (UA) Negative Urine Ketones Negative Ur Blood (Man) Negative Urine Nitrate Negative Urine Bilirubin Negative Urine Urobilinogen 0.2 Ur Leukocyte Esterase Negative 08/27/22 08/27/22 16:55 16:55 WBC 7.8 RBC 4.31 L Hgb 13.6 L Hct 40.6 L MCV 94.2 MCH 31.6 MCHC 33.5 RDW 12.2 Plt Count 236 MPV 10.2 Immature Gran % (Auto) Neut % (Auto) Lymph % (Auto) Yates % (Auto) Eos % (Auto) Baso % (Auto) Lymph # (Auto) Yates # (Auto) Eos # (Auto) Baso # (Auto) Abs Immat Gran (auto) Absolute Neuts (auto) Absolute Nucleated RBC Nucleated RBC % Sodium 137 Potassium 4.0 Chloride 103 Carbon Dioxide 28 Anion Gap 6 L BUN 19 Creatinine 1.00 Estim Creat Clear Calc 44 Estimated GFR > 60 Glucose 105 Calcium 9.2 Magnesium Total Bilirubin 1.1 AST 54 ALT 21 Alkaline Phosphatase 62 Total Protein 7.0 Albumin 4.2 Urine Color Urine Appearance Urine pH Ur Specific [place] Urine Protein Urine Glucose (UA) Urine Ketones Ur Blood (Man) Urine Nitrate Urine Bilirubin Urine Urobilinogen Ur Leukocyte Esterase Procedures/Treatments: Cardiac Cath Procedure Note Date of procedure:: 08/26/22 Performing physician:: [facility] REPORT Procedure Date: 08/26/2022 Asbestos Worker:?Filemon Mitchell M.D
== END 2022-08-28 13:10 | disposition home or self-care (01) | DRG 247 ==
PROVIDERS: Internal Medicine; Nurse Practitioner; Admitting Provider Student in an Organized Health Care Education/Training Program; PCP Internal Medicine; Visit Provider Internal Medicine
PROC: 027034Z Dilation of Coronary Artery, One Artery with Drug-eluting Intraluminal Device, Percutaneous Approach (ICD-10-PCS; CPT 93454; principal; 2022-08-26 13:00)
PROC: 027034Z Dilation of Coronary Artery, One Artery with Drug-eluting Intraluminal Device, Percutaneous Approach (ICD-10-PCS; 2022-08-26 13:00)
PROC: 027034Z Dilation of Coronary Artery, One Artery with Drug-eluting Intraluminal Device, Percutaneous Approach (ICD-10-PCS; CPT 36140; 2022-08-26 13:00)
PROC: 027034Z Dilation of Coronary Artery, One Artery with Drug-eluting Intraluminal Device, Percutaneous Approach (ICD-10-PCS; 2022-08-26 13:00)
DX: I21.4 Non-ST elevation (NSTEMI) myocardial infarction (principal); N40.0 Benign prostatic hyperplasia without lower urinary tract symptoms; I25.10 Atherosclerotic heart disease of native coronary artery without angina pectoris; Z96.643 Presence of artificial hip joint, bilateral
CPT/HCPCS: 36140; 36415; 80053; 80061; 81003; 83605; 83735; 84100; 84443; 84484; 85025; 85027; 85610; 85730; 93005; 93306; 93454; A9270; C1725; C1760; C1769; C1874; C1887; C1894; C9600; G0269; G0378; J0583; J1644; J2250; J2370; J3010; J7030; J7040

== ENCOUNTER 2023-02-05 11:00 | Outpatient (RCR) | payer MEDICARE, OTHER, SELFPAY | END 2023-02-10 11:59 | disposition home or self-care (01) | PROVIDERS: PCP Internal Medicine; Visit Provider Internal Medicine | DX: Z95.5 Presence of coronary angioplasty implant and graft (principal); I25.2 Old myocardial infarction | CPT/HCPCS: 93798 ==

== ENCOUNTER 2023-10-31 09:10 | Emergency (ER) | payer MEDICARE, OTHER, SELFPAY ==
[2023-10-31 09:10] VITALS: BP 129/57; PULSE 74; RESP 18; TEMP 36.2; O2SAT 98
--- NOTE | 2023-10-31 09:22 | ED.GENADULT ---
HPI - General Adult General Chief complaint: Urogenital-Male Stated complaint: urinary frequency Time Seen by Provider: 10/31/23 09:22 Source: patient Mode of arrival: ambulatory Limitations: no limitations History of Present Illness HPI narrative: 88-year-old elderly white male with history of multiple urinary tract infections and urethra repairs and strictures in the past complains of suprapubic burning and urinary frequency and dysuria for last 2 days. Has associated anorexia and has not eaten very much. He does get nausea vomiting or diarrhea or bowel habit changes hematuria bleeding or bruising lumps or bumps or swelling cough fever sore throat runny nose problems breathing back pain or other pains dizziness or lightheadedness weakness or numbness or other complaints. Says he has history of prostate cancer at this point there are not going to do any chemo or any treatment until his PSA goes higher. Denies any other complaints. Has a history of coronary artery disease with heart attack and is on Plavix and aspirin. Related Data Home Medications Medication Instructions Recorded Confirmed omega 7-jzw-gzi-fish oil 60 mg-90 1 cap PO HS 12/08/21 10/31/23 mg-500 mg capsule (Fish Oil) tamsulosin 0.4 mg capsule 0.4 mg PO HS 04/20/22 10/31/23 krill oil 500 mg capsule 500 mg PO HS 08/25/22 10/31/23 ppsjvytrfdxt-pohabpvf-wufshk tablet 1 tablet PO DAILY 08/25/22 10/31/23 metoprolol succinate 25 mg 50 mg PO QAM 10/31/23 10/31/23 tablet,extended release 24 hr (Toprol XL) Allergies Allergy/AdvReac Type Severity Reaction Status Date / Time No Known Allergies Allergy Verified 10/31/23 09:21 Review of Systems Review of Systems: All systems reviewed & are unremarkable except as noted in HPI and below PMFSH Past Medical History Medical History BPH (benign prostatic hyperplasia) DDD (degenerative disc disease) FH: bilateral hip replacements Insomnia Lumbar facet arthropathy Lumbar post-laminectomy syndrome Lumbar radiculopathy, chronic Surgical History Surgical History H/O Spinal surgery X2 History of total hip replacement Bilateral Family History Family History Father Pneumonia Glaucoma Mother Heart disease Macular degeneration Social History Social History (Updated 01/11/23 @ 12:03 by January Morton MA) Social History: Jones is very confident filling out medical forms. In the last 12 months he has not received assistance from an organization or program. Code status full code Smoking status: Never smoker Alcohol intake: never Drinks per week: 1 Substance use: never Substance use type: does not use Lack of Transportation: No Lack of Food: Never True Current Housing: I Have Housing Concerned About Future Housing: No Difficulty Paying Gas/Electric Bills: No Difficulty Paying for Meds: No Currently Unemployed: No Education: High School Diploma/GED Difficulty w/ Childcare or Family Care: No Living arrangements: with family Additional living arrangements comments: With Occupation/Education: retired Additional occupation/education comments: Retired from [employer] Spiritual care concerns: No Exam Narrative: Elderly White male patient with no apparent distress.? Head normocephalic, atraumatic.? Eyes conjunctiva pink sclera nonicteric.? Extraocular movements are intact.? Ears externally normal.? Oropharynx is clear with moist mucous membranes without exudates.? Neck is supple nontender no lymphadenopathy.? Back is nontender.? Lungs are clear.? Heart is regular rate and rhythm without murmurs gallops or rubs.? Chest wall nontender.? Back is nontender. Abdomen is soft and has mild suprapubic tenderness. no hepatosplenomegaly or masses no CVA tenderness no abdominal bruits. Penis and urethra
[2023-10-31 09:42] LABS: Bilirubin Urine Negative (Negative); Blood Urine 2+ (Negative); Color Urine Yellow (Yellow); Glucose Urine UA Negative (Negative); Ketones Urine 1+ (Negative); Leukocyte Esterase Ur 2+ LEU/UL (Negative); Nitrate Urine Positive (Negative); Protein Urine 1+ (Negative); Urobilinogen Urine 0.2 mg/dL (0.2-1.0)
[2023-10-31 09:52] LABS: Add Urine Microscopic? YES; Appearance Urine Cloudy (Clear); Bacteria Urine 4+ /hpf; WBC Clumps Urine Present /hpf; WBC Urine 21-30 /hpf (0-3)
--- NOTE | 2023-11-03 12:17 | PC.NURSE ---
PRELIMINARY URINE CULTURE RESULTS: ISOLATE 1: GREATER THAN 100,000 CFU/ML OF GRAM NEGATIVE BACILLI ISOLATED. TO AWAIT C&S PER DR BECKER.
--- NOTE | 2023-11-04 13:24 | PC.NURSE ---
Final urine culture report. Patient discharged on Cipro, Culture susceptible. no change in medication or further treatment needed at this time per ERP Dr. Crews.
--- NOTE | 2023-11-07 16:59 | PC.NURSE ---
final urine culture report reviewed. > [id number] E. coli isolated. pt discharged with cipro rx. susceptibility report shows sensitivity to cipro. no change in plan of care.
== END 2023-10-31 10:34 | disposition home or self-care (01) ==
LOC: CHSED 10:18
PROVIDERS: Emergency Provider Emergency Medicine; PCP Internal Medicine
DX: N39.0 Urinary tract infection, site not specified (principal); Z79.899 Other long term (current) drug therapy
CPT/HCPCS: 81001; 87077; 87086; 87088; 87186; 99283

== ENCOUNTER 2024-03-06 14:36 | Outpatient (RCR) | payer MEDICARE, OTHER, SELFPAY ==
--- NOTE | 2024-03-06 15:29 | PTOPEVAL1 ---
Assessment and note entered by Bari Whiteside Evaluation Information Assessment Status Evaluation ICD-10 Condition Codes (PT) Pain in low back M54.50,M54.16 Onset 02/16/24 Subjective Information Pt. reports that he has been experiencing back pain for several years. He states that he had back surgery in 1997. He reports that pain has worsened over the years. He reports that he underwent another back surgery in 2021 to remove arthritis. He states that his pain did not improve following his last surgery. He reports that he had a recent heart attack and is now on Plavix and cannot have surgery. He states that pain is localized to the low back. He does have hx of bilateral hip replacement. He states that he cannot stand for any significant duration. He reports that he can only walk a short distance and states that he has trouble shopping with his due to pain. He reports that lifting things from the floor is also difficult and will increase his pain. Pt. reports that his goal is to reduce pain with standing. Reported Pain Level Pain Score 5: Self Report Assessment PT Clinical Summary Pt. is an 88 year old male who enters the clinic with chronic low back pain with hx of multiple surgeries. HE presents with impaired flexibility, impaired trunk mobility, impaired posture, impaired l.e. strength and pain. Continued skilled PT is indicated in order to improve these areas to allow the pt. to be able to complete all IADL's with improve comfort and efficiency. Plan of Care Interventions Electrical Stimulation,Gait Training,Hot Pack/Cold Pack,Manual Therapy,Neuro Re-education,Patient/ Caregiver Educati,Therapeutic Activities, Therapeutic Exercise PT Services Indicated Yes Treatment Frequency and 2x/week x 10 visits Duration These treatments will address the objective and functional deficits as defined above. The patient will be advanced safely and appropriately in order for the patient to progress towards his/her prior level of function. Additional exercises will be introduced and as well as a comprehensive home exercise program upon discharge, if needed, ?to ensure carryover of functional gains achieved in the clinic. This treatment plan has been reviewed and agreement upon by the patient.
--- NOTE | 2024-03-06 15:29 | OPREHPOC ---
Outpatient Therapy Plan of Care This is a Multidisciplinary Plan of Care that may contain components documented by all disciplines (PT, OT, and ST.) PT Problem 1 PT Problem #1 Knowledge Deficit PT Goal 1 Goal / Goal Update Pt. will be independent with a HEP addressing trunk mobility and core strength. Target Visit 2 PT Problem 2 PT Problem #2 Impaired Functional Mobil PT Goal 1 Goal / Goal Update Pt. will be able to stand for duration of 30 minutes with reports of 5/10 pain at worst Pt. will be able to walk through the grocery store with his without pain increase Pt. will demonstrate less than 30% limitation on the Oswestry. Pt. will be able to lift an object weight 18# from floor to waist x 10 reps Target Visit 10 PT Problem 3 PT Problem #3 Impaired Strength PT Goal 1 Goal / Goal Update Pt. will demonstrate 5/5 hip extension and abduction strength bilateral Target Visit 6
--- NOTE | 2024-04-07 16:27 | OPREHPOC ---
Outpatient Therapy Plan of Care This is a Multidisciplinary Plan of Care that may contain components documented by all disciplines (PT, OT, and ST.) PT Problem 1 PT Problem #1 Knowledge Deficit PT Goal 1 Goal / Goal Update Pt. will be independent with a HEP addressing trunk mobility and core strength. Target Visit 2 Progress Met PT Problem 2 PT Problem #2 Impaired Functional Mobil PT Goal 1 Goal / Goal Update Pt. will be able to stand for duration of 30 minutes with reports of 5/10 pain at worst. not met Pt. will be able to walk through the grocery store with his without pain increase. met Pt. will demonstrate less than 30% limitation on the Oswestry. not met Pt. will be able to lift an object weight 18# from floor to waist x 10 reps. met Target Visit 10 Progress Partially Met PT Problem 3 PT Problem #3 Impaired Strength PT Goal 1 Goal / Goal Update Pt. will demonstrate 5/5 hip extension and abduction strength bilateral Target Visit 6 Progress Not Met
--- NOTE | 2024-04-07 16:27 | PTOPDC ---
Assessment and note entered by JT File, PT Evaluation Information Assessment Status Discharge ICD-10 Condition Codes (PT) Pain in low back M54.50,M54.16 Onset 02/16/24 Subjective Information patient reports he feels good today. he reports when he wakes up from sleep he is a bit sore, but with one round of tylenol and exercises he loosens up and feels good. he reports he is ready for DC today. he reports he is compliant with his exercise, and is not sure how much better it will get having his history of prior back surgeries. he reports he still has some difficulty with lifting objects more than 20lbs or so. Reported Pain Level Pain Score 3: Self Report Assessment PT Clinical Summary mr. garcia presents to skilled PT services for his 10th skilled PT visit. he presents today with low pain in the back, but does still have increased pain in the mornings. he feels improved functional performance and less pain with daily activities. he is compliant with his HEP at home. give his lack of significant progress towards goals, he will DC skilled PT today and continue with HEP independent at home. Plan of Care PT Services Indicated Yes
== END 2024-04-07 16:32 | disposition home or self-care (01) ==
LOC: CHSPT 14:36
PROVIDERS: Visit Provider Neurological Surgery
DX: M47.816 Spondylosis without myelopathy or radiculopathy, lumbar region (principal); M48.061 Spinal stenosis, lumbar region without neurogenic claudication
CPT/HCPCS: 97110; 97161; 97530

== ENCOUNTER 2024-03-24 14:12 | Outpatient (CLI) | payer MEDICARE, SELFPAY ==
[2024-03-24 15:02] LABS: Prostate Specific Antigen 4.1 ng/mL (< OR = 4.0)
== END 2024-03-24 14:13 | disposition home or self-care (01) ==
LOC: CHSLAB 14:15
PROVIDERS: PCP Internal Medicine
DX: C61 Malignant neoplasm of prostate (principal)
CPT/HCPCS: 36415; 84153

== ENCOUNTER 2024-05-26 09:05 | Outpatient (CLI) | payer MEDICARE, OTHER, SELFPAY ==
[2024-05-26 10:26] LABS: Prostate Specific Antigen 5.5 ng/mL (< OR = 4.0)
== END 2024-05-26 09:06 | disposition home or self-care (01) ==
PROVIDERS: PCP Internal Medicine
DX: C61 Malignant neoplasm of prostate (principal)
CPT/HCPCS: 36415; 84153

== ENCOUNTER 2024-07-24 14:10 | Outpatient (CLI) | payer MEDICARE, OTHER, SELFPAY ==
[2024-07-24 14:49] LABS: Basophils Absolute Auto 0.04 K/mm3 (0.00-0.10); Basophils Percent Auto 0.6 % (0.0-1.0); Eosinophils Absolute Auto 0.17 K/mm3 (0.02-0.50); Eosinophils Percent Auto 2.5 % (1.0-6.0); Hematocrit 39.1 % (37.0-46.0); Hemoglobin 12.8 g/dL (12.4-15.3); Immature Granulocyte Absolute 0.03 K/mm3 (0.00-0.00); Immature Granulocyte Percent A 0.4 % (0.0-0.0); Lymphocytes Percent Auto 23.9 % (18.0-42.0); Mean Corpuscular HGB Conc 32.7 g/dL (32-36); Mean Corpuscular Hemoglobin 31.9 pg (27.0-31.0); Mean Corpuscular Volume 97.5 fL (78.0-102.0); Mean Platelet Volume 10.3 fl (8.7-11.0); Monocytes Absolute Auto 1.09 K/mm3 (0.10-0.90); Monocytes Percent Auto 16.3 % (2.0-11.0); Neutrophils Absolute Auto 3.76 K/mm3 (1.70-7.20); Neutrophils Percent Auto 56.3 % (50.0-70.0); Platelet Count Result 256 K/mm3 (150-420); Red Blood Count 4.01 M/mm3 (4.70-6.10); Red Cell Distribution Width 11.7 % (11.6-14.4); White Blood Count 6.7 K/mm3 (4.8-10.8)
[2024-07-24 15:10] LABS: Alanine Aminotransferase 38 U/L (16-63); Albumin Level 3.7 g/dL (3.4-5.0); Alkaline Phosphatase 73 U/L (46-116); Anion Gap 7 mmol/L (4-12); Aspartate Amino Transferase 32 U/L (15-37); Bilirubin,Total 0.8 mg/dL (0.00-1.00); Blood Urea Nitrogen 20 mg/dL (7-18); Calcium 9.2 mg/dL (8.5-10.1); Carbon Dioxide 33 mmol/L (21-32); Chloride 101 mmol/L (98-108); Creatine Kinase 156 U/L (39-308); Estimated Glomerular Filt Rate 56; Glucose 84 mg/dL (70-99); NT Pro B Type Natriuretic Pept 397 pg/mL (0-450); Osmolality Calculated 293 mOsm/kg (285-295); Potassium 4.1 mmol/L (3.5-5.1); Sodium 141 mmol/L (136-145); Total Protein 6.9 g/dL (6.4-8.2); Troponin I 8.9 ng/L (0.00-60.4)
[2024-07-24 15:17] LABS: D Dimer 0.46 mg/L (0.19-0.50)
== END 2024-07-24 14:11 | disposition home or self-care (01) ==
LOC: CHSLAB 14:13
PROVIDERS: PCP Internal Medicine; Visit Provider Internal Medicine
DX: J06.9 Acute upper respiratory infection, unspecified (principal); R06.00 Dyspnea, unspecified
CPT/HCPCS: 36415; 71046; 80053; 82550; 82553; 83880; 84484; 85025; 85380

== ENCOUNTER 2024-07-27 14:44 | Outpatient (CLI) | payer MEDICARE, SELFPAY ==
--- OUTSIDE RECORDS SUMMARY | 2024-07-27 16:07 | XMS_ITS | Referral Summary ---
Author Organization [facility] Address [address] [place] [address] Care Team Providers Care Tire Room Supervisor Name Role Phone Omega Chin MD Primary Care Provider [phone] Encounters Date Type Department Care Team Description 07/19/2024 Results Follow-Up [facility] Cardiology [address] [place] [address] [address] [place] [phone] Lobo Moreira MD 07/18/2024 Orders Only [facility] Cardiology [address] [place] [address] [address] [place] [phone] Lobo Moreira MD 07/17/2024 Telephone [facility] Cardiology [address] [place] [address] [address] [place] [phone] Lobo Moreira MD 07/05/2024 10:15 AM SCOURING TRAIN OPERATOR Office Visit [facility] [address] [place] [address] [place] [phone] Lobo Moreira MD Coronary artery disease of [place] artery of [place] heart with stable angina pectoris (Primary Dx); Status post angioplasty with stent; BAIRES (dyspnea on exertion) from Last 3 Months Allergies No known active allergies Medications tamsulosin (FLOMAX) 0.4 mg extended release capsule 9 Active acetaminophen (TYLENOL) 500 mg tablet Take 1 tablet (500 mg total) by mouth daily Active yg-zot-kfewl-K1 -lycopen-lutein 626-28-148-300 mcg tablet Take 1 tablet by mouth daily Active aspirin 81 mg enteric coated tablet TAKE 1 TABLET BY MOUTH EVERY DAY 90 tablet 4 Active atorvastatin (LIPITOR) 80 mg tablet TAKE 1 TABLET BY MOUTH EVERY DAY 90 tablet 1 5 Active fish oil-dha-epa 1,200-144-216 mg capsule Take by mouth Active metoprolol XL (TOPROL-XL) 25 mg extended release tablet Take 1 tablet (25 mg total) by mouth daily 30 tablet 11 5 07/05/19 26 Active krill oil 500 mg capsule Take 1 capsule by mouth daily 07/05/19 25 Discontinu ed(Alterna te therapy) metoprolol XL (TOPROL-XL) 50 mg extended release tablet TAKE 1 TABLET BY MOUTH EVERY DAY IN THE MORNING 90 tablet 1 4 07/05/19 25 Discontinu ed(Alterna te therapy) clopidogreL (PLAVIX) 75 mg tablet TAKE 1 TABLET BY MOUTH EVERY DAY IN THE MORNING 90 tablet 2 4 07/05/19 25 Discontinu ed(Therapy completed) Active Problems Problem Noted Date Diagnosed Date History of percutaneous coronary intervention SVT (supraventricular tachycardia) 05/07/2023 Coronary artery disease invo lving [place] coronary artery of [place] heart without angina pectoris 10/02/2022 Lumbar facet joint syndrome 10/14/2021 Primary osteoarthritis of left knee 11/01/2020 Lumbar post-laminectomy syndrome 03/29/2020 Degenerative lumbar spinal stenosis 03/29/2020 DDD (degenerative disc disease), lumbar 03/29/20 Lumbar radiculopathy 03/29/2020 Chronic midline low back pain with bilateral sci atica 03/29/2020 Insomnia secondary to chronic pain 03/29/2020 Social History Tobacco Use Types Packs/Day Years Used Date Smoking Tobacco: Never Smokeless Tobacco: Never Tobacco Cessation:Counseling Given: Not Answered Alcohol Use Standard Drinks/Week Comments No 0 (1 standard drink = 0.6 oz pur e alcohol) PHQ-2 Answer Date Recorded PHQ-2 Total Score (If total score is 3 or more points, staff should administer the PHQ-9) 0 03/29/2020 Sex and Gender Information Value Date Recorded Sex Assigned at Not on file Legal Sex Male 11:11 AM SCOURING TRAIN OPERATOR Gender Identity Not on file Sexual Orientation Not on file Last Filed Vital Signs Vital Sign Reading Time Taken Comments Blood Pressure 124/70 07/05/2024 9:32 AM SCOURING TRAIN OPERATOR Pulse 67 07/05/2024 9:32 AM SCOURING TRAIN OPERATOR Temperature 36.4 C (97.5 F) 01/09/2022 10:02 AM CDT Respiratory Rate 16 01/29/2022 10:13 AM CDT Oxygen Saturation 99% 07/05/2024 9:32 AM SCOURING TRAIN OPERATOR Inhaled Oxygen Concentration - - Weight 72.8 kg (160 lb 6.4 oz) 07/05/2024 9:32 A M SCOURING TRAIN OPERATOR Height 167.6 cm (5' 6 ) 07/05/2024 9:32 AM SCOURING TRAIN OPERATOR Body Mass Index 25.89 07/05/2024 9:32 AM SCOURING TRAIN OPERATOR Plan of Treatment Not on file Procedures Procedure Name Priority Date/Time Associated Diagnosis Comments LIPID PANEL Routine 07/13/2024 12:28 PM SCOURING TRAIN OPERATOR ELECTROCARDIOGRAM REPORT Routine 025 7:59 AM SCOURING TRAIN OPERATOR Status post angioplasty with stent from Last 3 Months Results * Lipid panel (07/13/2024 12:28 PM SCOURING TRAIN OPERATOR) Blood us Lobo Moreira MD LAB BLOOD ORDERABLES Final Resul t * Electrocardiogram Report (07/05/2024 7:59 AM SCOURING TRAIN OPERATOR) us Lobo Moreira MD ECG ORDERABLES Final Result from Last 3 Months Insurance MEDICARE PHYSICIANS [facility] COMMERCIAL [facility] MEDICARE PHYSICIANS [employer] Care Teams Tire Room Supervisor Relationship Specialty Start Date End Date Omega Chin MD PCP - General 05/10/12
--- OUTSIDE RECORDS SUMMARY | 2024-07-27 16:07 | XMS_ITS | Encounter Summary ---
Author Organization [facility] Healthcare Address [address] [place] [address] Care Team Providers Care Jump Iron Machine Presser Name Role Phone Omega Chin MD Primary Care Provider [phone] Encounter Details Date Type Department Care Team (Late st Contact Info) Description 07/17/[address] [facility] Cardiology [address] [place] [phone] Lobo Moreira MD [address] [address] Social History Tobacco Use Types Packs/Day Years Used Date Smoking Tobacco: Never Smokeless Tobacco: Never Alcohol Use Standard Drinks/Week Comments No 0 (1 standard drink = 0.6 oz pur e alcohol) PHQ-2 Answer Date Recorded PHQ-2 Total Score (If total score is 3 or more points, staff should administer the PHQ-9) 0 03/29/2020 Sex and Gender Information Value Date Recorded Sex Assigned at Not on file Legal Sex Male 11:11 AM RECEIVING CLERK Gender Identity Not on file Sexual Orientation Not on file documented as of this encounter Miscellaneous Notes * Telephone Encounter - Yessenia Wheat RN - 07/17/2024 10:38 AM RECEIVING CLERK Labs received from [email or web address] and faxed as requested. IVING CLERK * Telephone Encounter - Anu Lewis - 07/17/2024 9:35 AM CST Pt had blood work done last week at [facility] in [place]. Pt requesting blood work be faxed to Dr. Saenz's office at [phone] Chin office (PCP). Contact:[phone] Fax: IVING CLERK documented in this encounter Plan of Treatment Not on file documented as of this encounter Visit Diagnoses Not on filedocumented in this encounter Care Teams Jump Iron Machine Presser Relationship Specialty Start Date End Date Omega Chin MD PCP - General 05/10/12 documented as of this encounter
--- OUTSIDE RECORDS SUMMARY | 2024-07-27 16:07 | XMS_ITS | Clinical Summary ---
Author Organization [facility] Address Formerly [facility], [facility] [place] [address] Care Team Providers Care Casino Cage Supervisor Name Role Phone Omega Chin MD Primary Care Provider [phone] Allergies No known active allergies Medications Imler-3 Fatty Acids (FISH OIL) 1200 MG CapIndications: supplement Take 1 tablet by mouth 2 (two) times a day. Indications: supplement Active aspirin EC (ASPIRIN) 81 MG EC tabletIndicatio ns:blood thinner Take 81 mg by mouth every evening. Indications: blood thinner Active Saw [place] 500 MG CapIndications: dose needs verfied; for prostate Take 1 tablet by mouth every evening. Indications: dose needs verfied; for prostate Active Multiple Vitamins-Minera ls (CENTRUM SILVER OR)Indications: supplement Take 1 tablet by mouth every evening. 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 Family History Relation Status Comments Father (Age 89) emphysema, [place] c[place] lung Mother (Age 93) old age Social History Tobacco Use Types Packs/Day Years Used Date Smoking Tobacco: Never Smokeless Tobacco: Never Alcohol Use Standard Drinks/Week Comments Yes 0 (1 standard drink = 0.6 oz pur e alcohol) socially Sex and Gender Information Value Date Recorded Sex Assigned at Not on file Legal Sex Male 8:54 PM CDT Gender Identity Not on file Sexual Orientation Not on file Last Filed Vital Signs Vital Sign Reading Time Taken Comments Blood Pressure 126/55 02/11/2018 11:53 AM CDT Pulse 65 02/11/2018 11:53 AM CDT Temperature 36.5 C (97.7 F) 02/11/2018 11:53 AM CDT Respiratory Rate 16 02/11/2018 11:53 AM CDT Oxygen Saturation 97% 02/11/2018 11:53 AM CDT Inhaled Oxygen Concentration - - Weight 73 kg (161 lb) 02/11/2018 3:00 AM CDT Height 167.6 cm (5' 6 ) 02/11/2018 3:00 AM CDT Body Mass Index 25.99 02/11/2018 3:00 AM CDT Plan of Treatment Health Maintenance Due Date Last Done Comments DTaP, Tdap and Td Vaccines ( 1 - Tdap) 1956 Zoster Vaccines (1 of 2) 10/06/1987 Annual Medicare Wellness Visit 2002 RSV Immunization or 60+ Years (1 - 1-dose 75+ series) 2012 Pneumococcal Vaccine: 65+ Ye ars (2 of 2 - PPSV23 or PCV20) 02/25/2017 02/26/2016 COVID-19 Vaccine (2023-2 5 season) 2024 Influenza Adult (#1) 2024 Meningococcal B Vaccine Aged Out No l onger eligible based on patient's age to complete this topic Meningococcal Vaccine Aged Out No noel lida eligible based on patient's age to complete this topic RSV Immunizations Under 20 Months Aged Out No longer eligible based on patient's age to complete this topic Medical Devices Implanted Type Area Cloth Printer Device Identifier Shelf Expiration Date Model / Serial / Lot Unknown Cage Description:Back-lumbar Unknown Hip Components Insurance MEDICARE [employer] Care Teams Casino Cage Supervisor Relationship Specialty Start Date End Date Omega Chin MD [address] [place] [address] PCP - General INTERNAL MEDICINE 11/18/17
--- OUTSIDE RECORDS SUMMARY | 2024-07-27 16:07 | XMS_ITS | Encounter Summary ---
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
--- OUTSIDE RECORDS SUMMARY | 2024-07-27 16:07 | XMS_ITS | Data Portability ---
Author Organization [facility], [address] [facility] ([place]) Address [address] [place] [address] Care Team Providers Care Lithoplate Maker Name Role Phone YAMILE HARRIS Primary Care Provider SHRUTHI HAAS Senior Publications Specialist Assessment Encounter Date Assessment Date Assessment LastModified by Organization Details LastModified Time 12/01/2023 12/01/2023 IMPRESSION: 1. Prostate cancer, on active surveillance. 2. BPH with elevated PVR and infection. PLAN: UA with micro urine culture today. MRI of the prostate. PSA today. Return for cystoscopy. Consider biopsy if MRI is worse, then make a decision on bipolar TURP versus robotic prostatectomy because of elevated residual for current infections as much as cancer. [facility] Not available 12/01/2023 14:38:27 03/01/2024 03/01/2024 Will send urine culture today. Will proceed to the operating room for cystoscopy, retrograde urethrogram and Optilume stent, 24-Greek, 5 cm. As far as his prostate cancer, will continue active surveillance. PSA level today. [facility] Not available 03/01/2024 16:09:43 Plan of Treatment Reminders Order Date Submit Date Provider Last Modified By Organization Details Last Modified Time Details Appointments Nurse Surgery Block 30.SURG 2024 01:30P M Dr. Woody Saenz Not available Not available Not available Lab PSA, serum or plasma 2023 024 [facility], [address] [place], [address], 04/14/2024 11:47:53 urinalysi s complete, reflex culture [address] [facility], [address] [place], [address], 03/01/2024 19:25:42 [facility]ology 2023 [email or web address], [address] [place], [address], 03/19/2024 09:44:58 PSA, serum or plasma 2023 024 [email or web address] [facility], [address] [place] [address], [address], 04/03/2024 11:21:31 urinalysi s, reflex culture 2023 024 [email or web address] [facility], [address] [place] [address], [address], 12/02/2023 07:23:24 cytology, urine 2023 024 [email or web address] [facility], [address] [place], [address], 03/10/2024 14:27:55 Referral None recorded. Procedures None recorded. Surgeries None recorded. Imaging MRI, pelvis, w/wo contrast - PRIOR TO 02/01 024 ROBERT [facility], [address] [place] [address], [address], 01/28/2024 11:00:42 Medication Orders Bactrim DS 800 mg-160 mg tablet [address]/Pharmacy #[id number], [address] [place], [address], 03/01/2024 14:08:21 Patient TargetsNo targets recorded. Patient InstructionsNo instructions recorded. Reason for Referral None Reported. Results Created Date Observation Date Name Description Value Unit Range Abnormal Flag Note LastModifiedBy Organization Detail LastModifiedTime 12/01/19 24 12/01/2023 NON-G YN CYTOL OGY ngyn Perfo rmed at: [facility] Order ing Provi ella: Oscar Zafararnaud Nava nt Name: LUIS ALBERTO LO valerie #: [id number] /A ge/Ge nder: 1935 (Age: 88) / M Proce dure Date: 2023 SP ECIME N RECEI SMITA * Urine , voide d Speci men Adequ acy Satis facto ry for evalu ation Cytol ogic Diagn osis Negat alisha for high- grade uroth elial carci noma Incre ased neutr ophil s consi stent with invol vemen t by an acute infla mmato ry/in fecti ous proce ss PL EL ECTRO NICAL LY VERIF IED BY KVNG FLORES MD 2023 17:09 CL INICA L HISTO RY Malig nant neopl asm of prost ate, urina ry tract infec tion GR OSS DESCR IPTIO N 15 mLs of unfix ed, yello w fluid is submi tted for cytol ogic evalu ation . 1 cytoc entri fuge prepa ratio n is evalu ated. END OF REPOR T Not Available [facility] Only - [facility] [address] [place] [address], [address], 12/02/2023 18:09:38 03/01/20 24 03/01/2024 NON-G YN CYTOL OGY ngyn Perfo rmed at: [facility] Order ing Provi ella: Cindy frankieBarry nt Name: LUIS ALBERTO DEL CASTILLO valerie #: [id number] /A ge/Ge nder: 1935 (Age: 88) / M Proce dure Date: 2023 SP ECIME N RECEI SMITA * Urine , Cysto scopy Speci men Adequ acy Satis facto ry for evalu ation Cytol ogic Diagn osis Negat alisha for high- grade uroth elial carci noma Incre ased neutr ophil s consi stent with invol vemen t by an acute infla mmato ry/in fecti ous proce ss KB EL ECTRO NICAL LY VERIF IED BY REYNA CORRALES MD 03/03 14:53 CL INICA L HISTO RY Bulbo us ureth ral stric ture GR OSS DESCR IPTIO N 25 mLs of unfix ed, yello w fluid is submi tted for cytol ogic evalu ation . 1 cytoc entri fuge prepa ratio n is evalu ated. END OF REPOR T Not Available [facility] Only - [facility] [address] [place] [address], [address], 03/03/2024 16:51:07 01/28/20 24 01/28/2024 MRI, pelvi s, w/wo contr ast [address] [address] Teleph one Name: Luis Alberto Del Castillo 0428Ex am Date: 2023 Age: 88Phys ician: MD Dany, Woody : 1935Ex aminat ion: MRI PELVIS W AND WO CONTRA ST EXAM: Magnet ic Resona nce Imagin g (MRI) of the Pelvis (Prost ate) HISTOR Y: Elevat ed PSA. COMPAR ANEESH: 12/25/19 23 TECHNI QUE: MRI of the prosta te gland was obtain ed by use of 3T magnet system , prior to and follow ing the uneven tful admini strati on of gadoli nium-b ased intrav enous contra st materi al, Dotare m, 15 mL, throug h the right hand withou t advers e reacti on accord ing to the prosta te protoc ol. FINDIN GS: The prosta te gland measur es 4.4 x 2.7 x 3.5 cm (Vol: 22 mL). Transi tional Zone: The transi tional zone is enlarg ed with multip le T2 varyin g intens ity nodule s with periph eral hypoin tensit y consis tent with prosta tic hyperp lasia. There is a 2.7 cm ill-de fined nodule in the right base of the prosta te (09/07) . This demons trates decrea sed ADC map signal intens ity and increa sed diffus ion signal (350/1 0, ). Periph eral Zone: There is diffus e hypoin tensit y throug hout the periph eral zone . The report ed lesion s in the left apex and right mid prosta te gland are not defini tively seen, howeve r MRI is not sensit alisha for detect ion of Gleaso n 6 carcin omas. Semina l vesicl es: The semina l vesicl es are normal . Neurov ascula r Bundle : The neurov ascula r bundle s are intact . Urinar y Bladde r: The bladde r has a normal trabec ular patter n. Vascul ature and Lymph Nodes: No lympha denopa thy is identi fied. GI tract: Scatte red coloni c divert iculi are seen withou t eviden ce of divert iculit is. Bones and soft tissue : Postsu rgical change s are seen from prior bilate ral total hip arthro plasti es. Postsu rgical change s are seen in the lower lumbar spine. The marrow is hetero geneou s. IMPRES VALERIE: 1. Change s prosta tic hyperp lasia. 2. Redemo nstrat ion of a lesion in the right basal transi tional zone. PI-RAD S Catego ry 5: Very High Risk 3. The report ed lesion s in the left apex and right mid prosta te gland are not defini tively seen, howeve r MRI is not sensit alisha for detect ion of Gleaso n 6 carcin omas Electr onical ly signed in Gallardo cribe by: JANEEN Beasley MD on:01/27 9:57 AM cc: Page PAGE 1 of [facility] 1 [facility] [address] [place], [address], 01/31/2024 15:42:30 Result Notes None recorded. Problems Name Problem SNOMED Code Status Onset Date Resolution Date Notes Provider Name and Address Organization Details Recorded Time Urethral stricture 48053879 Active 202302/19/17, 07/16/17, 11/22/17, 02/10/18 repaired by Melody y 01/13/22 repaired by Mingo in [facility] 4 17:11:16 Retention of urine 153315510 Active [address] [facility] 4 15:03:42 Acute urinary tract infection 251005133 Active [address] [facility] 4 10:58:04 Malignant tumor of prostate 042595101 Active 202301/06/23 Prostate Bx showed 3+3in Right Mid, Left [place], Target [facility]a [facility]ce [facility] 4 17:03:30 Problem Notes None recorded. Procedures Surgical History Date Name Laterality Status Provider Name and Address Organization Details Recorded Time 4 HI Procedure completed Nan Abarca [facility] 03/01/2024 16:09:28 Imaging Results Imaging Date Name Status LastModified by Organiz ation Details LastModified Time 01/28/2024 MRI, pelvis, w/wo contrast completed [address] Only - [facility] [address] [place] [address], [address], 01/31/2024 15:42:30 Procedure Notes None recorded. Medical Equipment None Reported. Allergies No known drug allergies Medications Name Sig Start Date Stop Date Status Note LastModified by Organization Details LastModified Time atorvastati n 80 mg tablet TAKE 1 TABLET BY MOUTH EVERY DAY active Not Available Not Available No t Available azithromyci n 250 mg tablet TAKE 2 TABLETS BY MOUTH TODAY, THEN TAKE 1 TABLET DAILY FOR 4 DAYS DIRECTED active Not Available Not Available No t Available metoprolol succinate ER 50 mg tablet,exte nded release 24 hr TAKE 1 TABLET BY MOUTH EVERY DAY IN THE MORNING active Not Available Not Available No t Available phenazopyri dine 200 mg tablet 200 MG ORALLY THREE TIMES A DAY FOR ACUTE URINARY TRACT INFECTION FOR 6 DOSES TAKE WITH FOOD active Not Available Not Available No t Available clopidogrel 75 mg tablet TAKE 1 TABLET BY MOUTH EVERY DAY IN THE MORNING 07/27 completed Not Available Not Available Not Available ciprofloxac in 250 mg tablet 250 MG ORALLY TWICE A DAY FOR ACUTE URINARY TRACT INFECTION FOR 5 DAYS active Not Available Not Available No t Available sulfamethox azole 800 mg-trimetho prim 160 mg tablet TAKE 1 TABLET BY MOUTH TWICE A DAY FOR 5 DAYS active Not Available Not Available No t Available aspirin 81 mg tablet,umang yed release TAKE 1 TABLET BY MOUTH EVERY DAY active Not Available Not Available No t Available tamsulosin 0.4 mg capsule TAKE 1 CAPSULE BY MOUTH EVERYDAY AT BEDTIME active Not Available Not Available No t Available metoprolol succinate ER 25 mg tablet,exte nded release 24 hr TAKE 1 TABLET (25 MG TOTAL) BY MOUTH DAILY. active Not Available Not Available No t Available Vitals Date Recorded Body height Body mass index (BMI) Body weight Body temperature Heart rate Oxygen saturation Oxygen saturation in Arterial blood by Pulse oximetry Systolic blood pressure Diastolic blood pressure Provider Name and Address Organization Details Last Updated DateTime 4 167.64 cm 24.2 kg/m2 95904.8 6 g 97.3 [degF] 52 /min 98 % 98 % 156 mm[Hg] 80 mm[Hg] [facility] 4 12:29:28 Date Recorded Body height Body mass index (BMI) Body weight Body temperature Heart rate Oxygen saturation Oxygen saturation in Arterial blood by Pulse oximetry Systolic blood pressure Diastolic blood pressure Provider Name and Address Organization Details Last Updated DateTime 4 167.64 cm 24.2 kg/m2 50500.8 6 g 97.7 [degF] 50 /min 99 % 99 % 164 mm[Hg] 81 mm[Hg] [facility] 4 13:29:28 Social History None recorded. Functional Status None recorded. Mental Status None recorded. Family History Nothing Reported. Medical History No medical history recorded. Past Encounters Encounter ID Performer Location Encounter Start Date Encounter Closed Date Diagnosis/Indication Diagnosis SNOMED-CT Code Diagnosis ICD10 Code Diagnosis Note [id number] Woody Saenz MD [facility] [place] [address] 12/01/2023 11:58:00 12/01/2023 13:19:10 Malignant tumor of prostate 559888724 C61 [id number] Woody Saenz MD PSA [facility]) [facility] [place] [address] 03/01/2024 12:42:56 03/01/2024 14:06:15 Urethral stricture 33344664 N35.912 Additional diagnosis detail: Bulbous urethral stricture Malignant tumor of prostate 151019011 C61 Retention of urine 21622 4002 R33.9 Health Concerns Section Related Observation LastModified by Organization Detai ls LastModified Time None Recorded Concern Status LastModified by Organization Details LastModified Time None Recorded Advance Directives Directive None Recorded Payers Encounter Date Sequence Insurance Name Policy Number Policy Degroot Covered Member ID Degroot Member ID Guarantor Name 12/01/2023 1 [place] Luis Alberto A Tebbe [id number] Luis Alberto A Tebbe 12/01/2023 2 [employer] [place] (MEDICARE SUPPLEMENT) Luis Alberto A Tebbe [id number] Luis Alberto A Tebbe 03/01/2024 1 [place] Luis Alberto A Tebbe [id number] Luis Alberto A Tebbe 03/01/2024 2 [employer] [place] (MEDICARE SUPPLEMENT) Luis Alberto A Tebbe [id number] Luis Alberto A Tebbe Notes Date Note Type Note Provider Name and Address Organization Details Recorded Time 12/01/2023 text/html An 88-year-old with Shanda 3+3 prostate cancer, on active surveillance, biopsy 01/05/2023. PSA trends:2.48 on .91 on .7 on .9 on 02/16/2022 Creatinine 1.03, GFR 71 on 05/28/2023. He has had recent urinary tract infections and continues to have occasional infections. Ultrasound residual today is 370. Prostate biopsy on 01/05/2023, showed [place] 3+3 prostate cancer and a PI-RADS 5 lesion, 3 of 4 cores, 20% of the specimen, as well as left apex and right mid 5% and 20% of the lesion respectively. PSA had been 5.11 on 01/13/2023, most recently 2.48 on 05/28/2023. It had been 6.7 on 07/28/2022, 3.65 on 09/02/2022, and 5.5 on 07/16/2022. He was treated in [place] for the UTI with Cipro and Pyridium on 10/31/2023. Current meds, omega 3, fish oil, tamsulosin 0.4 mg daily, Krill oil 500 mg capsule, multivitamin, aspirin 81 mg, clopidogrel 75 mg, atorvastatin 40 mg, metoprolol 25 mg.ils oWody Saenz MD [facility], [address], [facility] 12/02/2023 09:16:29 03/01/2024 text/html An 88-year-old with long history of urethral stricture disease, status post buccal graft at [place] but had some disruption with catheterization, now with weak stream, incomplete emptying, urgency, frequency. He also has a history of prostate cancer on active surveillance, Shanda 3+3 right mid and left apex. PSA trends:Most recent PSA of 2.48 on .91 on .7 on .9 on .11 on 01/13/2022ils Woody Saenz MD [address] [place] [address], [address], [facility] 03/02/2024 09:15:53
--- OUTSIDE RECORDS SUMMARY | 2024-07-27 16:07 | XMS_ITS ---
Author Organization Unknown Address [address] [place] [phone] Phone Care Team Providers Care Substation Operator Conversion Name Role Phone LOR OHARA Attending Unavailable LIONEL OVALLE Primary Unavailable Immunization Immunization Date Status Additional Notes Code Code System pneumococcal polysaccharide PPV23 02/09/2013 Completed 33 CVX Pneumococcal conjugate PCV 13 02/26/2016 Completed 133 CVX Influenza, split virus, quadrivalent, PF 03/09/2018 Completed 150 CVX Influenza, split virus, quadrivalent, PF 02/07/2021 Completed 150 CVX Influenza, split virus, quadrivalent, PF 06/09/2023 Completed 150 CVX Influenza, split virus, quadrivalent, preservative 02/26/2016 Completed 158 C VX Influenza, split virus, quadrivalent, preservative 05/20/2017 Completed 158 C VX Influenza, high-dose, quadrivalent, PF 03/18/2020 Completed 197 CVX COVID-19, mRNA, LNP-S, PF, 1 00 mcg/0.5mL dose or 50 mcg/0.25mL dose 06/21/2020 Completed 207 CVX COVID-19, mRNA, LNP-S, PF, 1 00 mcg/0.5mL dose or 50 mcg/0.25mL dose 07/19/2020 Completed 207 CVX COVID-19, mRNA, LNP-S, PF, 1 00 mcg/0.5mL dose or 50 mcg/0.25mL dose 03/26/2021 Completed 207 CVX Pneumococcal conjugate PCV20 , polysaccharide [id number] conjugate, adjuvant, PF 06/12/2024 Completed 216 CVX RSV, bivalent, protein subun it RSVpreF, diluent reconstituted, 0.5 mL, PF 06/12/2024 Completed 305 CV X COVID-19, mRNA, LNP-S, PF, william-sucrose, 30 mcg/0.3 mL 03/18/2023 Completed 309 CVX Results PSA-DIAGNOSTIC - Collect Pipo e/Time: 03/01/2024 13:24 [facility] ID: [id number] [place], [place], [id number] LOINC: 2857-1 Test Value Unit Reference Range Code Code System Flag PSA DIAG 3.20 ng/mL L=0.00 H=4.00 2857-1 LOINC URINALYSIS w/Microscopy/C&S if indicated - Collect Date/Time: 03/01/2024 13:00 [facility] ID: [id number] [place], [place], [id number] LOINC: 29794-3 Test Value Unit Reference Range Code Code System Flag UR SOURCE VOIDED 72030-7 LOINC COLOR LT YELLOW YELLOW 5778-6 LOINC CLARITY CLOUDY CLEAR 40485-1 LOINC SPEC GRAVITY <=1.005 1.000-1.030 5811-5 LOINC PH 6.5 5.0 - 6.5 5803-2 LOINC LEUK EST 3+ NEGATIVE 5799-2 LOINC A NITRATE POSITIVE NEGATIVE A PROTEIN NEGATIVE NEGATIVE 5804-0 LOINC GLUCOSE NEGATIVE NEGATIVE 39182-3 LOINC KETONES NEGATIVE NEGATIVE 36214-3 LOINC UROBILINOGEN 0.2 NEGATIVE 5818-0 LOINC BILIRUBIN NEGATIVE NEGATIVE 59576-2 LOINC BLOOD 2+ NEGATIVE 02079-1 LOINC WBC 10-20 0 - 2 93400-3 LOINC A RBC 2-5 0 - 2 25576-0 LOINC EPITHELIAL RARE RARE-FEW 31635-4 LOINC BACTERIA 2+ NONE SEEN 67020-2 LOINC A MUCUS NONE SEEN NONE SEEN 8247-9 LOINC YEAST NOT PRESENT NOT PRESENT 63981-4 LOINC CASTS NONE SEEN 63007-2 LOINC CRYSTALS NONE SEEN 51494-1 LOINC CULTURE? YES 8251-1 LOINC DIAGNOSIS ABN LAB RESU Social History Type Status Start Date End Date Code Code Syst em Smoking History Never smoker (Never Smoked) 705968702 SNOMED CT Sex Male Hospital Discharge Instructions Should you have any questions prior to discharge, please contact a member of your healthcare team. If you have left the hospital and have any questions, please contact your primary care physician. Reason For Referral No Data Found Procedures Procedure Name Date Status Code Code Lien campos Cystourethroscopy (separate procedure) 03/01/2024 complete d 59211 CPT Allergies and Adverse Reactions Allergy Substance Reaction Severity Start Date Concern Status Co de Code System No Known Allergies Active 919645999 SNO MED-CT Plan of Treatment Cystoscope w/Biopsy 08/02/2024 Prostate Needle Biopsy 08/02/2024 Encounters Encounter Diagnosis Start Date Code Code Sys tem Malignant neoplasm of prostate 03/01/2024 SNOMED-CT Personal Care Team Section Performer Name Performer Role Active Date Inactive YAMILE Romeo PCP - Primary care physician 2024-03-01
--- OUTSIDE RECORDS SUMMARY | 2024-07-27 16:07 | XMS_ITS | Clinical Summary ---
[facility] Organization [facility] Medical [facility] Building B Address [address] [place] [address] Care Team Providers Care Fabric Separator Operator Name Role Phone Omega Chin MD Primary Care Provider Allergies No known active allergies Medications tamsulosin (FLOMAX) 0.4 mg extended release capsule 9 Active acetaminophen (TYLENOL) 500 mg tablet Take 1 tablet (500 mg total) by mouth daily Active kw-hpc-sttbg-K1 -lycopen-lutein [id number] mcg tablet Take 1 tablet by mouth [...] tachycardia) 05/07/2023 Coronary artery disease invo lving [place] coronary artery of [place] heart without angina pectoris 10/02/2022 Lumbar facet joint syndrome 10/14/2021 Primary osteoarthritis of left knee 11/01/2020 Lumbar post-laminectomy syndrome 03/29/2020 Degenerative lumbar spinal stenosis 03/29/2020 DDD (degenerative disc disease), lumbar 03/29/20 20 Lumbar radiculopathy 03/29/2020 Chronic midline low back pain with bilateral sci atica 03/29/2020 Insomnia secondary to chronic pain 03/29/2020 Encounters Date Type Department Care Team Description 07/19/2024 Results Follow-Up [facility] Cardiology [address] [facility] [address] [place] [phone] Lobo Moreira MD 07/18/2024 Orders Only [facility] Cardiology [address] [place] [address] [address] [place] [phone] Lobo Moreira MD 07/17/2024 Telephone [facility] Cardiology [address] [place] [address] [address] [place] [phone] Lobo Moreira MD 07/05/2024 10:15 AM HR CLERK Office Visit [facility] Cardiology [address] [place] [address] [address] [place] [phone] Lobo Moreira MD Coronary artery disease of [place] artery of [place] heart with stable angina pectoris (Primary Dx); Status post angioplasty with stent; BAIRES (dyspnea on exertion) from Last 3 Months Surgical History Surgery Date Site/Laterality Comments URETHRA SURGERY reconstruction HIP ARTHROPLASTY Bilateral Hip arthroplasty SPINAL FUSION 05/24/1997 - 05/23/1998 Medical History Medical History Date Comments Known health problems: none Arthritis Family History Medical History Relation Name Comments No Known Problems Brother No Known Problems Daughter No Known Problems Father No Known Problems Mother Arthritis Other No Known Problems Sister No Known Problems Son Relation Name Status Comments Brother Daughter Father Mother Other Sister Son Social History Tobacco Use Types Packs/Day Years [...] on file Legal Sex Male 11:11 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 Gender Identity Not on file Sexual Orientation Not on file Obstetrics History Last Filed Vital Signs Vital Sign Reading Time Taken Comments Blood Pressure 124/70 07/05/2024 9:32 AM HR CLERK Pulse 67 07/05/2024 9:32 AM HR CLERK Temperature 36.4 C (97.5 F) 01/09/2022 10:02 AM CDT Respiratory Rate 16 01/29/2022 10:13 AM CDT Oxygen Saturation 99% 07/05/2024 9:32 AM HR CLERK Inhaled Oxygen Concentration - - Weight 72.8 kg (160 lb 6.4 oz) 07/05/2024 9:32 A M HR CLERK Height 167.6 cm (5' 6 ) 07/05/2024 9:32 AM HR CLERK Body Mass Index 25.89 07/05/2024 9:32 AM HR CLERK Plan of Treatment Health Maintenance Due Date Last Done Comments Fall Risk Assessment 1935 DTaP/Tdap/Td Vaccine (1 - Tdap) 1948 Hepatitis B Screening 10/06/1955 Zoster Vaccine (1 of 2) 10/06/1987 Well Visit 65+ 2002 Depression Screening 03/29/2021 03/29/2020, 03/29/20 20 Covid-19 Vaccine (4 - 2023-2 5 season) 2024 03/26/2021, 07/19/2020, 06/21/2020 Influenza Vaccine (#1) 2024 , 02/07/2021, 03/09/2018, Additional history exists Pneumococcal vaccine 65+ Completed 02/26/2016, 01/22 Procedures Procedure Name Priority Date/Time Associated Diagnosis Comments LIPID PANEL Routine 07/13/2024 12:28 PM HR CLERK ELECTROCARDIOGRAM REPORT Routine 025 7:59 AM HR CLERK Status post angioplasty with stent from Last 3 Months Results * Lipid panel (07/13/2024 12:28 PM HR CLERK) Blood Lobo Moreira MD LAB BLOOD ORDERABLES Final Resul t * Electrocardiogram Report (07/05/2024 7:59 AM HR CLERK) Lobo Moreira MD ECG ORDERABLES Final Result from Last 3 Months Insurance MEDICARE [facility] [place] [id number] MEDICARE [facility] Address: [id number] [place] [address] [place] [address] Care Teams Fabric Separator Operator Relationship Specialty Start Date End Date Omega Chin MD PCP - General 05/10/12
--- OUTSIDE RECORDS SUMMARY | 2024-07-27 16:07 | XMS_ITS ---
Author Organization Unknown Address [address] [place] [phone] Phone Care Team Providers Care Outbound Telemarketing Representative Name Role Phone LOR OHARA Attending Unavailable [...] 207 CVX Pneumococcal conjugate PCV20 , polysaccharide [id number] conjugate, adjuvant, PF 06/12/2024 Completed 216 CVX RSV, bivalent, protein subun it RSVpreF, diluent reconstituted, 0.5 mL, PF 06/12/2024 Completed 305 CV X COVID-19, mRNA, LNP-S, PF, william-sucrose, 30 mcg/0.3 mL 03/18/2023 Completed 309 CVX Results PSA-DIAGNOSTIC - Collect Pipo e/Time: 12/01/2023 12:30 [facility] ID: [id number] [address] [place], [place], [id number] LOINC: 2857-1 Test Value Unit Reference Range Code Code System Flag PSA DIAG 3.40 ng/mL L=0.00 H=4.00 2857-1 LOINC URINALYSIS w/Microscopy/C&S if indicated - Collect Date/Time: 12/01/2023 12:10 [facility] ID: [id number] [address] [place], [place], [id number] LOINC: 40044-5 Test Value Unit Reference Range Code Code System Flag UR SOURCE VOIDED 12301-8 LOINC COLOR YELLOW YELLOW 5778-6 LOINC CLARITY SL CLOUDY CLEAR 31957-2 LOINC SPEC GRAVITY <=1.005 1.000-1.030 5811-5 LOINC PH 6.0 5.0 - 6.5 5803-2 LOINC LEUK EST 3+ NEGATIVE 5799-2 LOINC A NITRATE POSITIVE NEGATIVE A PROTEIN NEGATIVE NEGATIVE 5804-0 LOINC GLUCOSE NEGATIVE NEGATIVE 20662-1 LOINC KETONES NEGATIVE NEGATIVE 11947-3 LOINC UROBILINOGEN 0.2 NEGATIVE 5818-0 LOINC BILIRUBIN NEGATIVE NEGATIVE 81661-2 LOINC BLOOD TRACE-INT NEGATIVE 84768-2 LOINC WBC 10-20 0 - 2 96707-6 LOINC A RBC 0-2 0 - 2 63440-5 LOINC EPITHELIAL RARE RARE-FEW 39225-9 LOINC BACTERIA 1+ NONE SEEN 92736-0 LOINC MUCUS FEW NONE SEEN 8247-9 LOINC YEAST NOT PRESENT NOT PRESENT 32268-0 LOINC CASTS NONE SEEN 98944-3 LOINC CRYSTALS NONE SEEN 98891-9 LOINC CULTURE? YES 8251-1 LOINC DIAGNOSIS ABN LAB RESU Social History Type Status Start Date End Date Code Code Syst em Smoking History Never smoker (Never Smoked) [id number] SNOMED CT Sex Male Hospital Discharge Instructions Should you have any questions prior to discharge, please contact a member of your healthcare team. If you have left the hospital and have any questions, please contact your primary care physician. Reason For Referral No Data Found Allergies and Adverse Reactions Allergy Substance Reaction Severity Start Date Concern Status Co de Code System No Known Allergies Active [id number] SNO MED-CT Plan of Treatment Cystoscope w/Biopsy 08/02/2024 Prostate Needle Biopsy 08/02/2024 Encounters Encounter Diagnosis Start Date Code Code Sys tem Malignant neoplasm of prostate 12/01/2023 SNOMED-CT Personal Care Team Section Performer Name Performer Role Active Date Inactive YAMILE Romeo PCP - Primary care physician 2024-03-01
== END 2024-07-27 14:45 | disposition home or self-care (01) ==
LOC: CHSLAB 14:47
PROVIDERS: PCP Internal Medicine
DX: R33.9 Retention of urine, unspecified (principal)
CPT/HCPCS: 87077; 87086; 87088; 87186

== ENCOUNTER 2025-02-23 07:22 | Outpatient (CLI) | payer MEDICARE, OTHER, SELFPAY ==
--- OUTSIDE RECORDS SUMMARY | 2025-02-23 07:28 | XMS_ITS | Clinical Summary ---
Author Organization [facility] Address [facility] [place] [address] Care Team Providers Care Associate Professor Of Criminal Justice Name Role Phone Omega Chin MD Primary Care Provider [phone] Allergies No known active allergies Medications [place]-3 Fatty Acids (FISH OIL) 1200 MG CapIndications: supplement Take 1 tablet by mouth 2 (two) times a day. Indications: supplement Active aspirin EC (ASPIRIN) 81 MG EC tabletIndicatio ns:blood thinner Take 81 mg by mouth every evening. Indications: blood thinner Active Saw [place] 500 MG CapIndications: dose needs verfied; for [...] 3:00 AM CDT Height 167.6 cm (5' 6) 02/11/2018 3:00 AM CDT Body Mass Index 25.99 02/11/2018 3:00 AM CDT Plan of Treatment Health Maintenance Due Date Last Done Comments DTaP, Tdap and Td Vaccines ( 1 - Tdap) 1956 Zoster Vaccines (1 of 2) 10/06/1987 Annual Medicare Wellness Visit 2002 RSV Immunization or 60+ Years (1 - 1-dose 75+ series) 2012 Pneumococcal Vaccine: 50+ Ye ars (2 of 2 - PPSV23) 02/25/2017 02/26/2016 COVID-19 Vaccine ( - 2023-2 5 season) 2025 Meningococcal B Vaccine Aged Out No l onger eligible based on patient's age to complete this topic Meningococcal Vaccine Aged Out No noel lida eligible based on patient's age to complete this topic RSV Immunizations Under 20 Months Aged Out No longer eligible based on patient's age to complete this topic Medical Devices Implanted Type Area Commercial Carpenter Device Identifier Shelf Expiration Date Model / Serial / Lot Unknown Cage Description:Back-lumbar Unknown Hip Components Insurance MEDICARE [employer] Care Teams Associate Professor Of Criminal Justice Relationship Specialty Start Date End Date Omega Chin MD [address] [place] [id number] PCP - General INTERNAL MEDICINE 11/18/17
--- OUTSIDE RECORDS SUMMARY | 2025-02-23 07:29 | XMS_ITS | Clinical Summary ---
Author Organization [facility] Medical Office Building B Address [address] [place] [address] Care Team Providers Care Chronometer Adjuster Name Role Phone Omega Chin MD Primary Care Provider [phone] Allergies No known active allergies Medications tamsulosin (FLOMAX) 0.4 mg extended release capsule 06/14/2018 Active acetaminophen (TYLENOL) 500 mg tablet Take 1 tablet (500 mg total) by mouth daily Active ba-eeu-yhbfv-K1- lycopen-lutein [id number] mcg tablet Take 1 tablet by mouth daily Active aspirin 81 mg enteric coated tablet TAKE 1 TABLET BY MOUTH EVERY DAY 90 tablet 06/08/2023 Active metoprolol XL (TOPROL-XL) 25 mg extended release tablet Take 1 tablet (25 mg total) by mouth daily 30 tablet 11 07/05/2024 6 Active atorvastatin (LIPITOR) 80 mg tablet TAKE 1 TABLET BY MOUTH EVERY DAY 90 tablet 1 11/29/2024 Active losartan (COZAAR) 25 mg tablet Take 1 tablet (25 mg total) by mouth daily 90 tablet 3 01/04/2025 6 Active Active Problems Problem Noted Date Diagnosed Date History of percutaneous coronary intervention SVT (supraventricular tachycardia) 05/07/2023 Coronary artery disease invo lving [place] coronary artery of [place] heart without angina pectoris 10/02/2022 Lumbar facet joint syndrome 10/14/2021 Primary osteoarthritis of left knee 11/01/2020 Lumbar post-laminectomy syndrome 03/29/2020 Degenerative lumbar spinal stenosis 03/29/2020 DDD (degenerative disc disease), lumbar 03/29/20 20 Lumbar radiculopathy 03/29/2020 Chronic midline low back pain with bilateral sci atica 03/29/2020 Insomnia secondary to chronic pain 03/29/2020 Encounters Date Type Department Care Team Description 01/04/2025 Orders Only [facility] Medical [facility] [address] [place] [address] Yessenia Parrish MA 01/04/2025 Telephone [facility] Cardiology [address] [facility] [address] [place] [phone] Lobo Moreira MD 01/03/2025 11:45 AM CDT Office Visit [facility] Medical [facility] [address] [place] [address] Lobo Moreira MD Heart failure with mildly reduced ejection fraction (HFmrEF, 41-49%) (Primary Dx); Coronary artery disease of [place] artery of [place] heart with stable angina pectoris; History of non-ST elevation myocardial infarction (NSTEMI); Status post angioplasty with stent; Nonrheumatic aortic valve insufficiency from Last 3 Months Surgical History Surgery [...] on file Legal Sex Male 11:11 AM 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 Gender Identity Not on file Sexual Orientation Not on file Obstetrics History Last Filed Vital Signs Vital Sign Reading Time Taken Comments Blood Pressure 140/64 01/03/2025 11:40 AM CDT Pulse 57 01/03/2025 11:40 AM CDT Temperature 36.4 C (97.5 F) 01/09/2022 10:02 AM CDT Respiratory Rate 16 01/29/2022 10:13 AM CDT Oxygen Saturation 97% 01/03/2025 11:40 AM CDT Inhaled Oxygen Concentration - - Weight 68 kg (150 lb) 01/03/2025 11:40 AM CDT Height 167.6 cm (5' 6) 01/03/2025 11:40 AM CDT Body Mass Index 24.21 01/03/2025 11:40 AM CDT Plan of Treatment Health Maintenance Due Date Last Done Comments Fall Risk Assessment 1937 DTaP/Tdap/Td Vaccine (1 - Tdap) 1948 Hepatitis B Screening 10/06/1955 Zoster Vaccine (1 of 2) 10/06/1987 Well Visit 65+ 2002 Depression Screening 03/29/2021 03/29/2020, 03/29/20 20 Covid-19 Vaccine (4 - 2024-2 6 season) 2025 03/26/2021, 07/19/2020, 06/21/2020 Influenza Vaccine (#1) 2025 , 02/07/2021, 03/09/2018, Additional history exists Pneumococcal vaccine 65+ Completed 02/26/2016, 01/22 Insurance MEDICARE [facility] [place] MEDICARE COMMERCIAL GENERIC MEDICARE [facility] [place] Care Teams Chronometer Adjuster Relationship Specialty Start Date End Date Omega Chin MD PCP - General 05/10/12
== END 2025-02-23 07:23 | disposition home or self-care (01) ==
LOC: ANHAUDIO 07:26
PROVIDERS: PCP Internal Medicine; Visit Provider Otolaryngology
DX: H90.3 Sensorineural hearing loss, bilateral (principal)
CPT/HCPCS: 92557; 92567

== ENCOUNTER 2025-03-12 14:23 | Outpatient (CLI) | payer MEDICARE, OTHER, SELFPAY ==
--- NOTE | ~2025-03-12 | MR_ITS ---
EXAMINATION: MR IAC wo/w con DATE: 03/12/2025 15:29 INDICATION: Sudden idiopathic hearing loss. TECHNIQUE: Magnetic resonance imaging (MRI) of the brain, brainstem, and internal auditory canals was performed without and with 20 mL MultiHance intravenous contrast. COMPARISON: None. FINDINGS: There are scattered areas of nonspecific increased T2-weighted signal intensity in the cerebral white matter. There is no intracranial hemorrhage, acute infarction, or abnormal intracranial mass lesion. The ventricles are normal in size. The internal auditory canals, inner ears, tympanic cavities, and mastoid air cells are normal. The orbits are normal. There is mild mucosal thickening in the ethmoid sinuses. IMPRESSION: 1. Mild nonspecific cerebral white matter disease, which likely represents chronic small vessel ischemic disease. Reviewed, dictated and finalized at location E. IMPRESSION: 1. Mild nonspecific cerebral white matter disease, which likely represents bulb tester [place] small vessel ischemic disease.
== END 2025-03-12 14:24 | disposition home or self-care (01) ==
PROVIDERS: PCP Internal Medicine; Visit Provider Otolaryngology
DX: H90.3 Sensorineural hearing loss, bilateral (principal)
CPT/HCPCS: 70553; A9577